=== PATIENT | female | born 1940 | race Caucasian/White ===

== ENCOUNTER 2016-06-14 08:57 | Day surgery (SDC) | payer MEDICARE ==
[2016-06-14] MEDS ORDERED: LACTATED RINGERS 1,000 ML IV ONE ×2 (09:17→11:32)
[2016-06-14] MEDS ORDERED: fentaNYL 100 MCG/2 ML VIAL IVP ONE (10:32)
[2016-06-14] MEDS ORDERED: MIDAZOLAM 2 MG/2 ML VIAL IVP ONE (10:32)
== END 2016-06-14 08:58 | disposition home or self-care (01) ==
PROC: 0DJD8ZZ Inspection of Lower Intestinal Tract, Via Natural or Artificial Opening Endoscopic (ICD-10-PCS; principal; 2016-06-14 09:45)
DX: K92.1 Melena (principal); K57.30 Diverticulosis of large intestine without perforation or abscess without bleeding; K64.8 Other hemorrhoids; Z80.0 Family history of malignant neoplasm of digestive organs; Z82.49 Family history of ischemic heart disease and other diseases of the circulatory system; Z80.41 Family history of malignant neoplasm of ovary; Z80.1 Family history of malignant neoplasm of trachea, bronchus and lung
CPT/HCPCS: 45378; J7120

== ENCOUNTER 2016-08-30 14:28 | Outpatient (CLI) | payer MEDICARE ==
--- NOTE | 2016-09-01 16:16 | Mammography Report ---
DIGITAL SCREENING MAMMOGRAM: 08/30/2016 CLINICAL INDICATION: A 76-year-old for screening. COMPARISON: 08/2009, 06/2008, 05/2007. TECHNIQUE: Routine CC and MLO projections were obtained of the breasts as well as bilateral laterall y exaggerated craniocaudal views. FINDINGS: Scattered fibroglandular tissue is present within the breasts. There are no dominant any s, suspicious microcalcifications, or secondary signs of malignancy. In comparison to the previous st udies, there are no significant changes. ASSESSMENT: NO MAMMOGRAPHIC EVIDENCE OF MALIGNANCY. NO SIGNIFICANT INTERVAL CHANGES. RECOMMENDATION: Screening mammography is recommended annually. BI-RADS category 1 - negative. STANDARD QUALIFYING STATEMENTS 1. This examination was reviewed with the aid of Computed-Aided Detection (CAD). 2. A negative or benign imaging report should not delay biopsy if clinically suspicious findings are present. Consider surgical consultation if warranted. More than 5% of cancers are not identified by i maging. 3. Dense breasts may obscure an underlying neoplasm. JOB #: [id number] EXT JOB #:[id number]
== END 2016-08-30 14:29 | disposition home or self-care (01) ==
LOC: DI.N 14:28
PROVIDERS: ATTEND Family Medicine
DX: Z12.31 Encounter for screening mammogram for malignant neoplasm of breast (principal)
CPT/HCPCS: 77067

== ENCOUNTER 2018-02-12 08:00 | Outpatient (CLI) | payer MEDICARE ==
[2018-02-12 16:44] LABS: BASOPHILS % (AUTO) 0.8 %; EOSINOPHILS # (AUTO) 0.2 10^3/uL (0.0-0.7); EOSINOPHILS % (AUTO) 4.8 %; HGB - HEMOGLOBIN 13.8 g/dL (12.0-16.0); LYMPHOCYTES # (AUTO) 0.9 10^3/uL (1.5-3.5); LYMPHOCYTES % (AUTO) 25.6 %; MEAN CORPUSCULAR HEMOGLOBIN 30.9 pg (27.0-31.0); MEAN CORPUSCULAR HGB CONC 32.6 g/dL (32.0-36.0); MEAN CORPUSCULAR VOLUME 94.9 fL (81.0-99.0); MEAN PLATELET VOLUME 9.2 fL (7.9-10.8); MONOCYTES # (AUTO) 0.4 10^3/uL (0.0-1.0); MONOCYTES % (AUTO) 11.3 %; NEUTROPHILS # (AUTO) 2.1 10^3/uL (1.5-6.6); NEUTROPHILS % (AUTO) 57.5 %; PLT - PLATELET COUNT 191 10^3/uL (130-450); RED BLOOD COUNT 4.45 10^6/uL (4.20-5.40); RED CELL DISTRIBUTION WIDTH 14.1 % (12.0-15.0); WHITE BLOOD COUNT 3.7 x10^3/uL (4.8-10.8)
[2018-02-12 16:59] LABS: ALBUMIN 4.4 g/dL (3.2-5.5); ALBUMIN/GLOBULIN RATIO 1.8 (1.0-2.2); ALKALINE PHOSPHATASE 63 IU/L (42-121); ALT ALANINE AMINOTRANSFERASE 19 IU/L (10-60); AST ASPARTATE AMINOTRANSFERASE 27 IU/L (10-42); BILIRUBIN,TOTAL 0.8 mg/dL (0.2-1.0); BUN - BLOOD UREA NITROGEN 16 mg/dL (6-20); CALCIUM 9.2 mg/dL (8.5-10.3); CARBON DIOXIDE - CO2 27 mmol/L (21-32); CHLORIDE 104 mmol/L (101-111); CHOL/HDL RATIO 2.3 (<4.4); CHOLESTEROL 214 mg/dL; CREATININE 0.8 mg/dL (0.4-1.0); GFR - MDRD 69 (>89); GLUCOSE 99 mg/dL (70-100); HDL CHOLESTEROL 92 mg/dL; LDL CHOLESTEROL,CALCULATED 107 mg/dL; LDL/HDL RATIO 1.2 (<4.4); SODIUM 138 mmol/L (135-145); TOTAL PROTEIN 6.9 g/dL (6.7-8.2); VLDL CHOLESTEROL 15 mg/dL
== END 2018-02-12 08:01 | disposition home or self-care (01) ==
LOC: LAB.WCP 08:00
PROVIDERS: ATTEND Family Medicine
DX: I10 Essential (primary) hypertension (principal)
CPT/HCPCS: 36415; 80053; 80061; 83721; 85025

== ENCOUNTER 2018-03-02 14:18 | Outpatient (CLI) | payer MEDICARE ==
--- NOTE | 2018-03-03 01:58 | Ultrasound Report ---
Reason: RETINAL ARTERY BRANCH OCCLUSION,LEFT Procedure Date: 03/02/2018 Accession Number: [id number] / [id number] Procedure: US - Carotid Doppler Complete CPT Code: FULL RESULT: EXAM: BILATERAL CAROTID AND VERTEBRAL ARTERY DUPLEX DOPPLER ULTRASOUND: EXAM DATE: 03/02/2018 03:57 PM CLINICAL HISTORY: Retinal artery branch occlusion, left. COMPARISON: None. TECHNIQUE: Grayscale imaging, color Doppler, and duplex spectral Doppler were used to evaluate the carotid and vertebral arteries bilaterally. Static images were obtained. FINDINGS: No significant atheromatous plaques are present in the right carotid bulb or the internal carotid artery. No significant atheromatous plaques are present in the left carotid bulb or the internal carotid artery. Visualized portions of the neck soft tissues are grossly unremarkable. Normal antegrade flow is present in bilateral vertebral arteries. VELOCITIES (cm/sec): Right CCA mid: PSV 56.7 cm/sec CCA dist: PSV 39.4 cm/sec ICA prox: PSV 31.7 cm/sec, EDV 4.1 cm/sec ICA mid: PSV 52.1 cm/sec, EDV 16 cm/sec ICA dist: PSV 56.7 cm/sec, EDV 13.3 cm/sec ECA: PSV 68.6 cm/sec Vert: PSV 26.6 cm/sec ICA/CCA: 1.0 Left CCA mid: PSV 52.5 cm/sec CCA dist: PSV 40.6 cm/sec ICA prox: PSV 43.2 cm/sec, EDV 13.9 cm/sec ICA mid: PSV 44 cm/sec, EDV 16.2 cm/sec ICA dist: PSV 55.3 cm/sec, EDV 19.2 cm/sec ECA: PSV 37.3 cm/sec Vert: PSV 27.4 cm/sec ICA/CCA: 1.06 ICA diameter stenosis: Right: <50% by velocity and <70% by NASCET criteria. Left: <50% by velocity and <70% by NASCET criteria. IMPRESSION: 1. No significant bilateral carotid artery plaquing. 2. In the right carotid artery there are no elevated carotid artery velocities to suggest hemodynamically significant stenosis. 3. In the left carotid artery there are no elevated carotid artery velocities to suggest hemodynamically significant stenosis. 4. Normal antegrade flow is present in bilateral vertebral arteries. General Recommendations: Stenosis =50% ICA - Follow-up ultrasound 6-12 months Stenosis <50% ICA - High Risk Patient with plaque - Follow-up ultrasound 1-2 years Normal Study but High Risk Patient - Follow-up ultrasound 3-5 years Management recommendations and diagnostic criteria are based on current IAC endorsed standards in Carotid Artery Stenosis: Grayscale and Doppler Ultrasound Diagnosis. Validated velocity measurements with angiographic measurements and velocity criteria are extrapolated from diameter data as defined by the Society of Radiologists in Ultrasound Consensus Conference Radiology 2003; 229;340-346. RADIA
== END 2018-03-02 14:19 | disposition home or self-care (01) ==
LOC: DI 14:18
PROVIDERS: ATTEND Family Medicine
DX: H34.232 Retinal artery branch occlusion, left eye (principal)
CPT/HCPCS: 93880

== ENCOUNTER 2019-02-04 07:00 | Outpatient (CLI) | payer MEDICARE ==
[2019-02-12 18:37] LABS: BASOPHILS % (AUTO) 0.7 %; EOSINOPHILS # (AUTO) 0.1 10^3/uL (0.0-0.7); EOSINOPHILS % (AUTO) 2.2 %; HGB - HEMOGLOBIN 11.9 g/dL (12.0-16.0); LYMPHOCYTES # (AUTO) 0.9 10^3/uL (1.5-3.5); LYMPHOCYTES % (AUTO) 15.9 %; MEAN CORPUSCULAR HEMOGLOBIN 30.7 pg (27.0-31.0); MEAN CORPUSCULAR HGB CONC 31.6 g/dL (32.0-36.0); MEAN CORPUSCULAR VOLUME 97.2 fL (81.0-99.0); MEAN PLATELET VOLUME 10.7 fL (7.9-10.8); MONOCYTES # (AUTO) 0.5 10^3/uL (0.0-1.0); MONOCYTES % (AUTO) 8.7 %; NEUTROPHILS % (AUTO) 72.3 %; PLT - PLATELET COUNT 206 10^3/uL (130-450); RED BLOOD COUNT 3.88 10^6/uL (4.20-5.40); WHITE BLOOD COUNT 5.5 x10^3/uL (4.8-10.8)
== END 2019-02-04 23:59 | disposition home or self-care (01) ==
LOC: LAB.R 07:00
PROVIDERS: ATTEND Physician Assistant
DX: M10.9 Gout, unspecified (principal); L03.90 Cellulitis, unspecified
CPT/HCPCS: 84550; 85025; 85651

== ENCOUNTER 2019-05-31 11:43 | Outpatient (CLI) | payer MEDICARE ==
--- NOTE | 2019-05-31 18:57 | XRAY Report ---
Reason: COUGH WITH FEVER Procedure Date: 05/31/2019 Accession Number: [id number] / [id number] Procedure: WCP - Chest 2 View X-Ray CPT Code: 03156 Final Report FULL RESULT: EXAM: CHEST RADIOGRAPHY EXAM DATE: 05/31/2019 12:09 PM. CLINICAL HISTORY: Cough, fever. COMPARISON: Chest radiograph from 03/05/2015, 07/22/2009. TECHNIQUE: 2 views. FINDINGS: Lungs/Pleura: No focal airspace opacity. There are hazy bibasilar densities on frontal view, which are similar to the prior examination and suspected to represent sequela of breast tissue attenuation as no correlate is identified on lateral view. No pleural effusion or pneumothorax. Mediastinum: Cardiomediastinal silhouette is within normal limits. Pulmonary vasculature is unremarkable. Other: There is mild apex left curvature centered at the thoracolumbar junction. Severe multilevel degenerative disk disease is present throughout the thoracic spine. There is partial visualization of flattening of the left humeral head, which may represent sequela of previous trauma or avascular necrosis. IMPRESSION: No acute cardiopulmonary abnormality. RADIA
== END 2019-05-31 23:59 | disposition home or self-care (01) ==
LOC: DI.WCP 11:43
PROVIDERS: ATTEND Family Medicine
DX: R05 Cough (principal)
CPT/HCPCS: 71046

== ENCOUNTER 2019-06-26 13:44 | Outpatient (CLI) | payer MEDICARE | END 2019-06-26 13:45 | disposition home or self-care (01) | LOC: COV 13:44 | PROVIDERS: ATTEND Family Medicine | DX: R05 Cough (principal) | CPT/HCPCS: 81599 ==

== ENCOUNTER 2019-06-26 14:43 | Emergency (ER) | payer MEDICARE ==
[2019-06-26] MEDS ORDERED: SODIUM CHLORIDE 0.9% 1,000 ML IV ONE (15:39)
[2019-06-26 15:44] LABS: BASOPHILS % (AUTO) 0.4 %; EOSINOPHILS # (AUTO) 0.1 10^3/uL (0.0-0.7); EOSINOPHILS % (AUTO) 1.2 %; LYMPHOCYTES # (AUTO) 0.9 10^3/uL (1.5-3.5); LYMPHOCYTES % (AUTO) 11.3 %; MEAN CORPUSCULAR HEMOGLOBIN 30.2 pg (27.0-31.0); MEAN CORPUSCULAR HGB CONC 32.7 g/dL (32.0-36.0); MEAN CORPUSCULAR VOLUME 92.3 fL (81.0-99.0); MEAN PLATELET VOLUME 10.1 fL (7.9-10.8); MONOCYTES # (AUTO) 0.5 10^3/uL (0.0-1.0); MONOCYTES % (AUTO) 6.8 %; PLT - PLATELET COUNT 225 10^3/uL (130-450); RED BLOOD COUNT 4.31 10^6/uL (4.20-5.40); RED CELL DISTRIBUTION WIDTH 13.5 % (12.0-15.0); WHITE BLOOD COUNT 7.5 x10^3/uL (4.8-10.8)
--- NOTE | 2019-06-26 15:50 | ED Physician Documentation ---
History of Present Illness - Stated complaint Stated Complaint: WEAKNESS - Chief complaint Chief Complaint: Resp - Additonal information Additional information: Patient comes emergency department for chief complaint of worsening cough and fa tigue for the last several days. Patient states that approximately 1 month ago she was diagnosed with pneumonia. She was treated for this and seemed to be getting better until several days ago when she noticed that her cough was worsening and she seemed to be more tired than she had been. She states she has not been running fevers. Patient denies any chest pain. She complains of mild dyspnea. Her cough is nonproductive. The patient talk to her primary care physician's office, and they told her to come and get tested for covid. Patient went to the respiratory tent and got her covid testing, but then came here because she really feels that she needs a chest x-ray to be sure her pneumonia has not recurred. Patient's primary care physician is Dr. Chery. Patient states that she is otherwise fairly healthy. She does note that she had polio as a child and that she was exposed to secondhand smoke for some time, though she was never smoker herself. She states she has been told previously that her x-ray shows the appearance of COPD, even though the patient states she does not have any history of COPD. Patient states that she does not feel short of breath laying in the bed, but that she has just been generally fatigued and has not gotten out of bed much for the last couple of days. No other complaints at this time. She has not had any known exposures to anybody with covid-19 or influenza. Review of Systems Ten Systems: 10 systems reviewed and negative Constitutional: reports: Fatigue Eyes: reports: Reviewed and negative Ears: reports: Reviewed and negative Nose: reports: Reviewed and negative Throat: reports: Reviewed and negative Cardiac: reports: Reviewed and negative Respiratory: reports: Dyspnea, Cough GI: reports: Reviewed and negative : reports: Reviewed and negative Skin: reports: Reviewed and negative Musculoskeletal: reports: Reviewed and negative Neurologic: reports: Reviewed and negative Psychiatric: reports: Reviewed and negative Endocrine: reports: Reviewed and negative Immunocompromised: reports: Reviewed and negative PD PAST MEDICAL HISTORY - Past Medical History Cardiovascular: None Respiratory: Pneumonia Neuro: Peripheral neuropathy Endocrine/Autoimmune: None GI: None : Frequency HEENT: None Psych: None Musculoskeletal: Osteoarthritis, Chronic back pain Derm: None - Past Surgical History Past Surgical History: Yes General: Colonoscopy Ortho: Carpal Tunnel surgery, Spine surgery HEENT: Tonsil/Adenoidectomy Derm: Skin cancer surgery - Present Medications Home Medications: Ambulatory Orders Medication Instructions Recorded Confirmed Acetaminophen [Tylenol] 2 tab QPM 06/26/19 06/26/19 Codeine Phosphate/Guaifenesin 10 ml Q8HR 06/26/19 06/26/19 [Guaifen-Codeine 200-20 mg/10Ml] Fluticasone [Flonase] 2 spray DAILY 06/26/19 06/26/19 Gabapentin 2 tab DAILY 06/26/19 06/26/19 Naproxen Sodium [Aleve] 2 tab BID 06/26/19 06/26/19 methocarbamoL [Methocarbamol] 1 tab DAILY 06/26/19 06/26/19 - Allergies Allergies/Adverse Reactions: Allergies Allergy/AdvReac Type Severity Reaction Status Date / Time No Known Drug Allergies Allergy Verified 10/08/15 13:26 - Social History Does the pt smoke?: No Smoking Status: Never smoker Does the pt drink ETOH?: No Does the pt have substance abuse?: No PD ED PE NORMAL - Vitals Vital signs reviewed: Yes - General General: Alert and oriented X 3, No acute distress, Well developed/nourished - HEENT HEENT: Atraumatic, PERRL, EOMI, Moist mucous membranes - Neck Neck: Supple, no meningeal sign - Cardiac Cardiac: RRR, No murmur - Respiratory Respiratory: No respiratory distress, Clear bilaterally, Other (Patient is conversing easily in full sentences with no laboring of respirations.) - Abdomen Abdomen: Soft, Non tender, Non distended - Back Back: No CVA TTP - Derm Derm: Normal color, Warm and dry, No rash - Extremities Extremities: No deformity, No edema - Neuro Neuro: Alert and oriented X 3, face worker 2-12 intact, No motor deficit, No sensory deficit, Normal speech - Psych Psych: Normal mood, Normal affect Results - Vitals Vitals: Vital Signs - 24 hr 06/26/19 06/26/19 06/26/19 14:47 14:51 15:21 Temperature 36.4 C L Heart Rate 81 72 68 Respiratory 16 28 H 20 Rate Blood Pressure 136/82 H 172/78 H 150/81 H O2 Saturation 97 97 100 06/26/19 06/26/19 15:31 16:11 Temperature Heart Rate 76 76 Respiratory 18 20 Rate Blood Pressure 148/81 H 164/84 H O2 Saturation 94 97 Oxygen O2 Source Room air - Labs Labs: Laboratory Tests 06/26/19 06/26/19 06/26/19 15:30 15:30 15:55 WBC 7.5 RBC 4.31 Hgb 13.0 Hct 39.8 MCV 92.3 MCH 30.2 MCHC 32.7 RDW 13.5 Plt Count 225 MPV 10.1 Neut # (Auto) 6.0 Lymph # (Auto) 0.9 L [place] # (Auto) 0.5 Eos # (Auto) 0.1 Baso # (Auto) 0.0 Absolute Nucleated RBC 0.00 Nucleated RBC % 0.0 Sodium 134 L Potassium 4.1 Chloride 98 L Carbon Dioxide 28 Anion Gap 8.0 BUN 14 Creatinine 0.7 Estimated GFR (MDRD) 81 L Glucose 109 H Calcium 8.7 Total Bilirubin 0.7 AST 25 ALT 19 Alkaline Phosphatase 59 Total Protein 6.9 Albumin 4.3 Globulin 2.6 Albumin/Globulin Ratio 1.7 Lipase 23 Influenza A (Rapid) Negative Influenza B (Rapid) Negative - Rads (name of study) chest x-ray Radiology: Final report received, EMP read indepedently, See rad report PD MEDICAL DECISION MAKING - ED course Complexity details: reviewed results, re-evaluated patient, considered differential, d/w patient ED course: The patient was worked up with chest x-ray, labs, and influenza test. Patient's labs were unremarkable and influenza was negative. Chest x-ray showed a mild amount of atelectasis at the bilateral lung bases, without any clear-cut infiltrate. Patient had a normal white blood cell count and no fever, with good oxygen saturation, and was feeling much better after IV fluids. I did not find convincing evidence of a recurrence of her pneumonia at this time. The patient has already been tested for covid today and I have advised her to stay home until she receives results from this testing. The patient is advised if she develops fevers and worsening shortness of breath but that she should be reevaluated immediately. We have discussed home management of the symptoms, as well as usual indications for return. Departure - Departure Disposition: 01 Home, Self Care Clinical Impression: Cough Condition: Fair Instructions: ED Viral Syndrome Comments: Your labs look great. Your chest x-ray shows mild collapse of the air cells at the very bottom of both of your lungs. This could be from coughing. There is no definite evidence of a recurrence of your pneumonia. You may have picked up one of the many viruses that go around this time of year, or you may simply still be recovering from the pneumonia you had last month. Please continue to drink plenty of fluids. Get rest as needed but be sure to get up and about and take deep breaths to help aerate your lungs and prevent recurrence of your pneumonia. If you develop fevers or severe shortness of breath, you should be referred evaluated immediately. You will be notified if your covid test comes back positive.
[2019-06-26 15:57] LABS: ALBUMIN 4.3 g/dL (3.2-5.5); ALBUMIN/GLOBULIN RATIO 1.7 (1.0-2.2); BILIRUBIN,TOTAL 0.7 mg/dL (0.2-1.0); CALCIUM 8.7 mg/dL (8.5-10.3); CREATININE 0.7 mg/dL (0.4-1.0); TOTAL PROTEIN 6.9 g/dL (6.7-8.2)
--- NOTE | 2019-06-26 16:39 | XRAY Report ---
Reason: SOA Procedure Date: 06/26/2019 Accession Number: [id number] / [id number] Procedure: XR - Chest 1 View X-Ray CPT Code: 10433 Final Report FULL RESULT: EXAM: CHEST RADIOGRAPHY EXAM DATE: 06/26/2019 04:27 PM. CLINICAL HISTORY: SOA. COMPARISON: CHEST 2 VIEW 05/31/2019 11:47 AM. TECHNIQUE: 1 view. FINDINGS: Lungs/Pleura: Very mild increased bibasilar lung markings could represent atelectasis. Mild acute infiltrate is not excluded. No definite focal consolidation. No pleural effusion. No pneumothorax. Mediastinum: Within exam limitations, the cardiomediastinal contour is normal. Other: Thoracolumbar S-shaped scoliosis redemonstrated. Bilateral glenohumeral osteoarthritis redemonstrated. IMPRESSION: Very mild increased bibasilar markings could represent atelectasis. Mild acute infiltrate is not excluded. No definite focal consolidation. RADIA
[2019-06-26 17:40] VITALS: BP 138/84
== END 2019-06-26 17:38 | disposition home or self-care (01) ==
LOC: ED 14:43
DX: R05 Cough (principal)
CPT/HCPCS: 36415; 71045; 80053; 83690; 85025; 87275; 87276; 99283; 99284

== ENCOUNTER 2020-04-03 07:00 | Outpatient (CLI) | payer MEDICARE | END 2020-04-03 23:59 | disposition home or self-care (01) | LOC: COV 07:00 | PROVIDERS: ATTEND Ophthalmology | DX: U07.1 COVID-19 (principal) ==

== ENCOUNTER 2020-12-09 13:12 | Outpatient (CLI) | payer MEDICARE ==
[2020-12-09 17:57] LABS: BASOPHILS % (AUTO) 0.6 %; EOSINOPHILS # (AUTO) 0.2 10^3/uL (0.0-0.7); HCT - HEMATOCRIT 37.4 % (37.0-47.0); HGB - HEMOGLOBIN 11.6 g/dL (12.0-16.0); LYMPHOCYTES # (AUTO) 0.8 10^3/uL (1.5-3.5); LYMPHOCYTES % (AUTO) 14.8 %; MEAN CORPUSCULAR HEMOGLOBIN 29.7 pg (27.0-31.0); MEAN CORPUSCULAR VOLUME 95.9 fL (81.0-99.0); MONOCYTES # (AUTO) 0.5 10^3/uL (0.0-1.0); MONOCYTES % (AUTO) 8.8 %; NEUTROPHILS # (AUTO) 3.9 10^3/uL (1.5-6.6); NEUTROPHILS % (AUTO) 72.6 %; PLT - PLATELET COUNT 225 10^3/uL (130-450); RED CELL DISTRIBUTION WIDTH 13.6 % (12.0-15.0); WHITE BLOOD COUNT 5.3 x10^3/uL (4.8-10.8)
[2020-12-09 18:17] LABS: ALBUMIN 4.3 g/dL (3.2-5.5); ALBUMIN/GLOBULIN RATIO 1.9 (1.0-2.2); BILIRUBIN,TOTAL 0.6 mg/dL (0.2-1.0); CALCIUM 9.3 mg/dL (8.5-10.3); CREATININE 0.8 mg/dL (0.4-1.0); TOTAL PROTEIN 6.6 g/dL (6.7-8.2)
== END 2020-12-09 23:59 | disposition home or self-care (01) ==
LOC: LAB.WCP 13:12
PROVIDERS: ATTEND Family Medicine
DX: R60.9 Edema, unspecified (principal)
CPT/HCPCS: 36415; 80053; 85025

== ENCOUNTER 2021-10-01 19:55 | Outpatient (CLI) | payer MEDICARE ==
--- NOTE | 2021-10-02 10:11 | XRAY Report ---
PROCEDURE: Chest 2 View X-Ray INDICATIONS: COUGH TECHNIQUE: 2 view(s) of the chest. COMPARISON: Chest x-ray 2 views, 03/05/2015. FINDINGS: Surgical changes and devices: None. Lungs and pleura: There are bilateral interstitial infiltrates. No pleural effusions or pneumothorax. Lungs are clear. Mediastinum: Mediastinal contours are normal. Heart size is normal. Bones and chest wall: No suspicious bony abnormalities. Soft tissues appear unremarkable. Left arnie ulder prosthesis. IMPRESSION: Bilateral interstitial infiltrates. There is radiographic finding suggests interstitial pneumonia such as UIP. Recommend high-resolution chest CT for follow-up evaluation if clinically miguel angel cated. Reviewed by: Rita Pearl MD on 10/02/2021 10:09 AM PDT Approved by: Rita Pearl MD on 10/02/2021 10:09 AM PDT Station ID: [id number]
== END 2021-10-01 19:56 | disposition home or self-care (01) ==
LOC: DI 19:55
PROVIDERS: ATTEND Family Medicine
DX: R91.8 Other nonspecific abnormal finding of lung field (principal)

== ENCOUNTER 2022-10-19 08:00 | Outpatient (CLI) | payer MEDICARE ==
[2022-10-19 17:54] LABS: ALBUMIN 4.4 g/dL (3.2-5.5); ALBUMIN/GLOBULIN RATIO 1.8 (1.0-2.2); BILIRUBIN,TOTAL 0.4 mg/dL (0.2-1.0); CALCIUM 9.8 mg/dL (8.5-10.3); CREATININE 0.7 mg/dL (0.6-1.3); POTASSIUM 4.7 mmol/L (3.5-4.5); TOTAL PROTEIN 6.9 g/dL (6.4-8.9)
[2022-10-19 17:57] LABS: BASOPHILS % (AUTO) 0.5 %; EOSINOPHILS # (AUTO) 0.1 10^3/uL (0.0-0.7); HCT - HEMATOCRIT 39.6 % (37.0-47.0); HGB - HEMOGLOBIN 12.5 g/dL (12.0-16.0); LYMPHOCYTES # (AUTO) 0.8 10^3/uL (1.5-3.5); LYMPHOCYTES % (AUTO) 13.8 %; MEAN CORPUSCULAR HEMOGLOBIN 29.6 pg (27.0-31.0); MEAN CORPUSCULAR HGB CONC 31.6 g/dL (32.0-36.0); MEAN CORPUSCULAR VOLUME 93.8 fL (81.0-99.0); MEAN PLATELET VOLUME 11.1 fL (7.9-10.8); MONOCYTES # (AUTO) 0.5 10^3/uL (0.0-1.0); MONOCYTES % (AUTO) 9.5 %; NEUTROPHILS # (AUTO) 4.1 10^3/uL (1.5-6.6); NEUTROPHILS % (AUTO) 73.8 %; PLT - PLATELET COUNT 207 10^3/uL (130-450); RED BLOOD COUNT 4.22 10^6/uL (4.20-5.40); RED CELL DISTRIBUTION WIDTH 13.9 % (12.0-15.0); WHITE BLOOD COUNT 5.6 x10^3/uL (4.8-10.8)
== END 2022-10-19 23:59 | disposition home or self-care (01) ==
LOC: LAB.N 08:00
PROVIDERS: ATTEND Family Medicine
DX: R19.01 Right upper quadrant abdominal swelling, mass and lump (principal)
CPT/HCPCS: 36415; 80053; 85025

== ENCOUNTER 2022-10-27 06:59 | Outpatient (CLI) | payer MEDICARE ==
--- NOTE | 2022-10-27 10:52 | Ultrasound Report ---
PROCEDURE: Abdomen Complete INDICATIONS: ABD SWELLING TECHNIQUE: Real-time scanning was performed of the abdominal and retroperitoneal organs, with image documentatio n. COMPARISON: CT abdomen and pelvis with, 10/08/2015. FINDINGS: Liver: Liver is normal in size and heterogeneous in echotexture. Gallbladder: There are multiple gallstones. No gallbladder wall thickening, pericholecystic fluid col lection or sonographic Green sign. Biliary ducts: Intrahepatic bile ducts are non-dilated. Extrahepatic bile duct caliber measures 5 m m. Normal is 6-7 mm or less in diameter, or 10 mm or less post-cholecystectomy. Pancreas: Visualized portions of the pancreas are sonographically normal. Spleen: Spleen is normal in size and homogeneous in echotexture. Kidneys: Kidneys are normal in size and echotexture. Right kidney measures 10.9 cm long; left kidne y measures 9.8 cm long. No hydronephrosis or nephrolithiasis. No solid masses. No complex renal cys tic lesions which require follow-up. Aorta: Visualized aorta is normal in caliber at less than 3 cm. Atherosclerotic plaques in aorta. Iliacs: Proximal common iliac arteries are normal in caliber at less than 2.5 cm. IVC: Intrahepatic inferior vena cava is patent. Miscellaneous: No free abdominal fluid. IMPRESSION: 1. Liver demonstrates heterogeneous echotexture. Please correlate with liver enzymes. 2. Cholelithiasis. No ultrasound findings to suggest acute cholecystitis. Reviewed by: Rita Pearl MD on 10/27/2022 10:50 AM PDT Approved by: Rita Pearl MD on 10/27/2022 10:50 AM PDT Station ID: [id number]
== END 2022-10-27 07:00 | disposition home or self-care (01) ==
LOC: DI 06:59
PROVIDERS: ATTEND Family Medicine
DX: K80.20 Calculus of gallbladder without cholecystitis without obstruction (principal); R19.01 Right upper quadrant abdominal swelling, mass and lump

== ENCOUNTER 2022-12-12 11:37 | Outpatient (CLI) | payer MEDICARE ==
[2022-12-12 17:56] LABS: CREATININE 0.7 mg/dL (0.6-1.3)
== END 2022-12-12 11:38 | disposition home or self-care (01) ==
LOC: LAB.N 11:37
PROVIDERS: ATTEND Surgery
DX: R19.01 Right upper quadrant abdominal swelling, mass and lump (principal)
CPT/HCPCS: 36415; 82565

== ENCOUNTER 2023-01-06 07:43 | Outpatient (CLI) | payer MEDICARE ==
[2023-01-06 12:34] LABS: CHOL/HDL RATIO 2.1 (<4.4); CHOLESTEROL 183 mg/dL; HDL CHOLESTEROL 87 mg/dL; LDL CHOLESTEROL,CALCULATED 85 mg/dL; TRIGLYCERIDES 54 mg/dL (48-352); VLDL CHOLESTEROL 11 mg/dL
== END 2023-01-06 07:44 | disposition home or self-care (01) ==
LOC: LAB.N 07:43
PROVIDERS: ATTEND Internal Medicine
DX: Z13.220 Encounter for screening for lipoid disorders (principal); Z13.29 Encounter for screening for other suspected endocrine disorder
CPT/HCPCS: 36415; 80061; 83721; 84443

== ENCOUNTER 2023-03-02 15:19 | Outpatient (CLI) | payer MEDICARE ==
--- NOTE | 2023-03-02 17:12 | DEXA Report ---
PROCEDURE: Dexa Spine and/or Hip INDICATIONS: POST MENOPAUSAL TECHNIQUE: Dual energy x-ray absorptiometry (DXA) was performed on a [facility]. Regions measur ed are the AP Spine, femoral neck, and if needed forearm. COMPARISON: None FINDINGS: Lumbar Spine: Bone Mineral Density 1.407 g/cm/cm,T score 1.7. Left Femoral Neck: Bone Mineral Density 0.952 g/cm/cm, T score -0.6. Left Hip: Bone Mineral Density 0.990 g/cm/cm,T score -0.1. (T score greater or equal to -1.0: NORMAL) (T score from -1.1 to -2.4: OSTEOPENIA) (T score less than or equal to -2.5 to: OSTEOPOROSIS) Impression: By WHO criteria, this patient has normal bone density. Patients with diagnosis of osteoporosis or osteopenia should have regular bone mineral density assess ment. For those eligible for Medicare, routine testing is allowed once every 2 years. Testing frequ ency can be increased for patients who have rapidly progressing disease or for those who are receivin g medical therapy to restore bone mass. Reviewed by: Berto Milian MD on 03/02/2023 5:10 PM PST Approved by: Berto Milian MD on 03/02/2023 5:10 PM PST Station ID: [id number]
== END 2023-03-02 15:20 | disposition home or self-care (01) ==
LOC: DI 15:19
PROVIDERS: ATTEND Internal Medicine
DX: Z78.0 Asymptomatic menopausal state (principal)

== ENCOUNTER 2023-03-24 16:46 | Emergency (ER) | payer MEDICARE ==
[2023-03-24 17:04] VITALS: O2SAT 100
[2023-03-24] MEDS ORDERED: HYDROcod/ACETAM 5/325 MG TABLET PO STA (18:35)
--- NOTE | 2023-03-24 18:36 | ED Physician Documentation ---
PD HPI UPPER EXT INJURY - Stated complaint Stated Complaint: L ANKLE PX - Chief complaint Chief Complaint: Ext Problem - History obtained from History obtained from: Patient - Additonal information Additional information: She developed sudden onset left ankle pain while sitting on the couch 9 PM last night. There was no antecedent injury or abnormal activities. She never had this before. It hurts to walk such that she can barely walk. No fevers. PD PAST MEDICAL HISTORY - Past Medical History Cardiovascular: None Respiratory: Pneumonia Neuro: Peripheral neuropathy Endocrine/Autoimmune: None GI: None : Frequency HEENT: None Psych: None Musculoskeletal: Osteoarthritis, Chronic back pain Derm: None - Past Surgical History Past Surgical History: Yes General: Colonoscopy Ortho: Carpal Tunnel surgery, Spine surgery HEENT: Tonsil/Adenoidectomy Derm: Skin cancer surgery - Present Medications Home Medications: Ambulatory Orders Medication Instructions Recorded Confirmed Acetaminophen [Tylenol] 2 tab PO QPM PRN 06/26/19 12/21/22 Gabapentin 2 tab DAILY 06/26/19 06/26/19 methocarbamoL [Methocarbamol] 2 tab PO DAILY PRN 06/26/19 12/21/22 HYDROcod/ACETAM 5/325 [[employer] 5/325] 1 - 2 tab PO Q6H PRN #15 tablet 03/24/23 Meloxicam [Mobic] 7.5 mg PO BID PRN #20 tablet 03/24/23 - Allergies Allergies/Adverse Reactions: Allergies Allergy/AdvReac Type Severity Reaction Status Date / Time No Known Drug Allergies Allergy Verified 10/08/15 13:26 - Social History Does the pt smoke?: No Smoking Status: Never smoker Does the pt drink ETOH?: No Does the pt have substance abuse?: No PD ED PE NORMAL - Vitals Vital signs reviewed: Yes - General General: Alert and oriented X 3, No acute distress - Extremities Extremities: Other (The calf is nontender and nonswollen. She is tender about the left ankle joint. There is no warmth or redness. She has modest pain with range of motion but not severe as would be with a septic joint.) - Neuro Neuro: Alert and oriented X 3, Normal speech Results - Vitals Vitals: Vital Signs - 24 hr 03/24/23 16:53 Temperature 36.5 C Heart Rate 71 Respiratory 18 Rate Blood Pressure 170/95 H O2 Saturation 100 Oxygen O2 Source Room air - Labs Labs: Laboratory Tests 03/24/23 18:47 Sodium 136 Potassium 5.2 H Chloride 103 Carbon Dioxide 27 Anion Gap 6.0 BUN 18 Creatinine 0.9 Estimated GFR (MDRD) 60 L Glucose 94 Uric Acid 4.2 Calcium 9.4 PD Medical Decision Making - ED course ED course: 82-year-old woman presents with acute onset left ankle pain starting last night. DVT is considered but there is really no pain or swelling above the ankle so this is very unlikely. Gout is considered but her uric acid is low normal and there is no history of same so less likely as well. X-ray showing calcification lateral to the lateral malleolus. This is where the bulk of her pain is and it really hurts for her to invert her ankle so I wonder if she might have a tendinitis? Will place her in a walking boot with pain medication anti- inflammatories pending follow-up. Departure - Departure Disposition: Home, Self Care Clinical Impression: Left ankle tendinitis Condition: Good Record reviewed to determine appropriate education?: Yes Instructions: ED Tendinitis Calcific Prescriptions: Meloxicam [Mobic] 7.5 mg PO BID PRN #20 tablet PRN Reason: Pain HYDROcod/ACETAM 5/325 [[employer] 5/325] 1 - 2 tab PO Q6H PRN #15 tablet PRN Reason: Pain Comments: I sent your prescription electronically to the [facility] in [place]. As discussed your uric acid level was normal and the x-ray showed some calcification on the tendon on the outside of your ankle so I suspect you have a tendinitis there. You can walk and bear weight as tolerated and also reasonable for you to use the walking boot until improved. Generally rested though and follow-up with your primary care physician, next available appointment for further evaluation and treatment. Return for new or worsening symptoms. I am prescribing a short course of narcotic pain medication for you. These are potentially dangerous and addictive medications that should be used carefully. These medications may constipate you. Take an ipwg-efe-cukskor stool softener (docusate) twice daily with plenty of water while taking these medications. If you go 24 hours without a bowel movement, take hpqe-vwa-goplptl miralax, per package instructions. Do not drink or drive while taking these medications. If you received narcotic or sedating medications while in the emergency department, do not drive for 24 hours. Store this medication in a safe, secure place and out of reach of children. It is a violation of federal law to give or sell this medication to another person or to use in a manner other than prescribed. The ED will not refill narcotic prescriptions, including prescriptions lost or stolen. To dispose of unwanted medications: 1. [facility] provides a drop box for medication in pill form only (no liquids) 8:00 am to 4:30 p.m. Monday-Monday in the lobby of the [facility] [place], [address] [place] [address]. Empty pills into ziplock bag before disposal. Call [phone] for information. 2.[facility] is a free service available to all [place] residents. Go to [email or web address] Note that many narcotic pain relievers also contain Tylenol/acetaminophen. Please ensure that your total dose of acetaminophen from all sources does not exceed 3 g (3000 mg) per day. Forms: PCP List
[2023-03-24 19:07] LABS: CALCIUM 9.4 mg/dL (8.5-10.3); CREATININE 0.9 mg/dL (0.6-1.3); POTASSIUM 5.2 mmol/L (3.5-4.5); URIC ACID 4.2 mg/dL (2.3-6.6)
--- NOTE | 2023-03-24 20:03 | XRAY Report ---
PROCEDURE: Ankle 3+V LT INDICATIONS: ankle pain TECHNIQUE: 3 views of the ankle were acquired. COMPARISON: None. FINDINGS: Bones: No acute fractures or dislocations. Ankle mortise is normally aligned. No suspicious bony l esions. Soft tissues: Mild nonspecific soft tissue edema in the lower leg. Nonspecific calcification is seen lateral to the lateral malleolus that may represent heterotopic ossification or the sequela of a prio r injury. IMPRESSION: No acute osseous abnormality. If there is clinical concern or persistent symptoms, additional imaging such as repeat radiographs or advanced imaging (e.g. CT, MRI) may be helpful for further evaluation. Reviewed by: Austin Rees MD on 03/24/2023 8:02 PM PST Approved by: Austin Rees MD on 03/24/2023 8:02 PM PST Station ID: [id number]
[2023-03-24 21:00] VITALS: BP 150/88
== END 2023-03-24 21:00 | disposition home or self-care (01) ==
LOC: ED 16:46
DX: M77.52 Other enthesopathy of left foot and ankle (principal)
CPT/HCPCS: 36415; 73610; 80048; 84550; 99283; 99284; A9270

== ENCOUNTER 2023-10-18 07:30 | Outpatient (CLI) | payer MEDICARE ==
[2023-10-18 11:58] LABS: BASOPHILS % (AUTO) 0.7 %; EOSINOPHILS # (AUTO) 0.3 10^3/uL (0.0-0.7); EOSINOPHILS % (AUTO) 6.5 %; HCT - HEMATOCRIT 38.1 % (37.0-47.0); HGB - HEMOGLOBIN 11.9 g/dL (12.0-16.0); LYMPHOCYTES # (AUTO) 0.9 10^3/uL (1.5-3.5); LYMPHOCYTES % (AUTO) 20.2 %; MEAN CORPUSCULAR HEMOGLOBIN 29.5 pg (27.0-31.0); MEAN CORPUSCULAR HGB CONC 31.2 g/dL (32.0-36.0); MEAN CORPUSCULAR VOLUME 94.3 fL (81.0-99.0); MONOCYTES # (AUTO) 0.5 10^3/uL (0.0-1.0); MONOCYTES % (AUTO) 12.5 %; NEUTROPHILS # (AUTO) 2.6 10^3/uL (1.5-6.6); NEUTROPHILS % (AUTO) 59.9 %; PLT - PLATELET COUNT 224 10^3/uL (130-450); RED BLOOD COUNT 4.04 10^6/uL (4.20-5.40); RED CELL DISTRIBUTION WIDTH 14.5 % (12.0-15.0); WHITE BLOOD COUNT 4.3 x10^3/uL (4.8-10.8)
[2023-10-18 12:20] LABS: ALBUMIN 4.5 g/dL (3.2-5.5); ALBUMIN/GLOBULIN RATIO 2.1 (1.0-2.2); ALKALINE PHOSPHATASE 42 IU/L (42-121); ALT ALANINE AMINOTRANSFERASE 14 IU/L (10-60); AST ASPARTATE AMINOTRANSFERASE 23 IU/L (10-42); BILIRUBIN,TOTAL 0.5 mg/dL (0.2-1.0); BUN - BLOOD UREA NITROGEN 17 mg/dL (6-20); CALCIUM 9.9 mg/dL (8.5-10.3); CARBON DIOXIDE - CO2 30 mmol/L (21-32); CHLORIDE 104 mmol/L (101-111); CHOL/HDL RATIO 2.3 (<4.4); CHOLESTEROL 200 mg/dL; CREATININE 0.7 mg/dL (0.6-1.3); GFR - MDRD 80 (>89); GLUCOSE 95 mg/dL (74-104); HDL CHOLESTEROL 86 mg/dL; LDL CHOLESTEROL,CALCULATED 100 mg/dL; LDL/HDL RATIO 1.2 (<4.4); POTASSIUM 4.3 mmol/L (3.5-4.5); SODIUM 138 mmol/L (135-145); TOTAL PROTEIN 6.6 g/dL (6.4-8.9); TRIGLYCERIDES 68 mg/dL; VLDL CHOLESTEROL 14 mg/dL
== END 2023-10-18 07:31 | disposition home or self-care (01) ==
LOC: LAB.N 07:30
PROVIDERS: ATTEND Internal Medicine
DX: I10 Essential (primary) hypertension (principal); Z13.220 Encounter for screening for lipoid disorders
CPT/HCPCS: 36415; 80053; 80061; 83721; 85025

== ENCOUNTER 2023-12-06 15:11 | Outpatient (CLI) | payer MEDICARE ==
--- NOTE | 2023-12-07 11:23 | XRAY Report ---
PROCEDURE: Shoulder 2+V RT INDICATIONS: OSTEOARTHRITIS OF RIGHT GLENOHUMERAL JOINT TECHNIQUE: 3 views of the shoulder were acquired. COMPARISON: Chest x-ray 10/01/2021 FINDINGS: Bones: Interval progression of severe glenohumeral joint space loss with [id number]. There is been superior humeral head subluxation with loss of the acromiohumeral interval. Humeral head articular s urface is irregular course the superior margin and there are prominent marginal spurs present. There is subcortical sclerosis on both sides of the glenohumeral joint. Articular surface irregularity at t he acromioclavicular joint which appears intact. The visible rib arcs are intact. Soft tissues: No suspicious soft tissue calcifications. The visualized lungs are within normal limi ts. IMPRESSION: Significant progression of osteoarthritic change in the humeral head since the prior exam. Superior subluxation of the humeral head and osseous remodeling suggests chronic rotator cuff tear. Reviewed by: Viki Carter MD on 12/07/2023 11:21 AM PDT Approved by: Viki Carter MD on 12/07/2023 11:21 AM PDT Station ID: [id number]
== END 2023-12-06 15:12 | disposition home or self-care (01) ==
LOC: DI.N 15:11
PROVIDERS: ATTEND Internal Medicine
DX: M19.011 Primary osteoarthritis, right shoulder (principal)

== ENCOUNTER 2024-06-21 06:12 | Inpatient (IN) ==
--- NOTE | 2024-06-21 06:22 | ED Physician Documentation ---
History of Present Illness Stated complaint Stated Complaint: WEAKNESS/NAUSEA Chief complaint Chief Complaint: General History obtained from History obtained from: Patient and EMS Additonal information Additional information: 84yF with pmh htn, chronic back pain, chronic constipation, p/w abdominal discomfort starting at 8pm and persisting overnight with associated nausea. no vomiting or diarrhea. aptient has been constipated and took laxatives yesterday to no effect.she received 4mg IV zofran en route with ems. denies fever. +chronic back pain (on robaxin and gabapentin) Meds/Allgy Home Medications Ambulatory Orders Medication Instructions Recorded Confirmed calcium lactate 100 mg PO QDAY 03/02/24 03/04/24 milk thistle 175 mg tablet 175 mg PO QDAY 03/02/24 03/04/24 multivitamin 1 tab PO QAM 03/02/24 03/04/24 valacyclovir 500 mg tablet 500 mg PO QDAY 03/02/24 03/04/24 hydrochlorothiazide 12.5 mg tablet 12.5 mg PO QAM #30 tabs 03/04/24 03/04/24 acetaminophen 325 mg tablet 650 mg PO QID PRN pain 03/09/24 03/09/24 calcium 300 mg (carb, 1 tab PO QDAY 03/09/24 03/09/24 citrate)-magnesium 150 mg-vit D3 400 unit tablet (Miguel-Mag Complex) coenzyme Q10 150 mg capsule 150 mg PO QDAY #30 caps 03/09/24 03/09/24 gabapentin 300 mg capsule 600 mg PO HS 03/09/24 03/09/24 melatonin 5 mg capsule 5 mg PO HS 03/09/24 03/09/24 plant stanol nieves 450 mg capsule 450 mg PO QDAY 03/09/24 03/09/24 (Cholest Off Plus) turmeric 450 mg-turmeric root 1 cap PO QDAY 03/09/24 03/09/24 extract 50 mg capsule wheat dextrin 3 gram/4 gram oral See Rx Instructions PO QDAY #90 03/09/24 03/09/24 powder (Benefiber Sugar Free grams (dextrin)) Allergies Allergies Allergy/AdvReac Type Severity Reaction Status Date / Time No Known Drug Allergies Allergy Verified 03/02/24 21:04 PFSH Active Problems All Active Problems (Updated 06/21/24 @ 06:54 by Jyotsna Rubio MD) Weakness (Acute) Anemia (Acute) Essential hypertension (Acute 07/31/09) Spinal stenosis, lumbar (Acute) Lumbar post-laminectomy syndrome (Acute 12/23/22) Arthritis of both hips (Acute 12/04/18) Pelvic floor instability (Acute 08/07/18) Menopausal syndrome (Acute) Female cystocele (Acute) Aphthous ulcer of mouth (Acute 09/13/07) Venous insufficiency of lower extremity (Acute 12/09/20) Constipation by delayed colonic transit (Acute) Diverticulosis of colon (Acute 12/23/22) Asymptomatic cholelithiasis (Acute 12/23/22) Insomnia (Acute) Allergic rhinitis (Acute) Venous insufficiency (Acute) Other forms of scoliosis, thoracolumbar region (Acute) Pulmonary fibrosis (Acute) Medical History Medical History Sprain of other ligament of left ankle, subsequent encounter Retinal artery branch occlusion, left eye (02/07/18) Personal history of poliomyelitis Surgical History Surgical History Status post reverse arthroplasty of right shoulder Fall 2023 Status post reverse arthroplasty of left shoulder 09/2019 H/O colonoscopy 05/2016, sigmoid + descending diverticulosis w/ internal hemorrhoids S/P lumbar laminectomy 08/2015, bilateral L1-L5 S/p bilateral carpal tunnel release ~2000 History of episiotomy 2x with vaginal births, S/P tonsillectomy and adenoidectomy Age 20 Family History Family History Father Colon cancer Mother CAD (coronary artery disease) Heart attack Sister Lung cancer Sister Ovarian cancer Social History Social History Smoking Status: Never smoker Second hand tobacco smoke exposure: Yes Do you dip or chew tobacco?: No Do you vape?: No Living arrangement: At home Marital Status: Living Condition: With spouse/s.o. More Information: 4 children Relationship: Level: Independent Do you feel safe in your home environment?: Yes Suffered physical, verbal, emotional, or financial abuse?: No History of Abuse: No ETOH Use: None Substance Use: denies use Are you sexually active?: No Occupation: [employer] at [employer] Retired: Yes Service: No Exam Constitutional normal general appearance, no apparent distress and average body habitus HENMT normocephalic and head/scalp atraumatic Eyes PERRL and EOMs intact bilaterally Neck/C-Spine visual inspection normal Respiratory breath sounds equal bilaterally, normal respiratory effort and clear to auscultation bilaterally Cardiovascular normal heart rate noted and regular rhythm noted Gastrointestinal abdomen normal to inspection, abdomen soft to palpation and nontender to palpation Genitourinary no CVA tenderness Results Vitals Vitals: Vital Signs - 24 hr 06/21/24 06:18 Temperature 36.8 C Temperature Source Oral Pulse Rate 94 Respiratory Rate 16 Blood Pressure 120/70 O2 Saturation 95 O2 Source Room air Pain Intensity 5 Oxygen O2 Source Room air Labs Labs: Laboratory Tests 06/21/24 06:33 WBC 5.8 RBC 2.35 L Hgb 6.6 L* Hct 21.2 L MCV 90.2 MCH 28.1 MCHC 31.1 L RDW 14.6 Plt Count 232 MPV 9.7 Neut # (Auto) 5.1 Lymph # (Auto) 0.4 L [place] # (Auto) 0.3 Eos # (Auto) 0.0 Baso # (Auto) 0.0 Absolute Nucleated RBC 0.00 Nucleated RBC % 0.0 PD Medical Decision Making ED course ED course: 84yF p/w abdominal cramping, nausea overnight and constipation. benign abdominal exam. IV pepcid ordered in addition to the zofran given by ems. plan to endorse to Dr. Castro at 7am shift change to f/u cbc, abdominal panel, u/a and RVP. Discharge Plan Discharge Condition: Fair Clinical Impression: Anemia, Weakness Prescriptions: No Action calcium lactate 100 mg calcium tablet 100 mg PO QDAY multivitamin Tablet 1 tab PO QAM milk thistle 175 mg tablet 175 mg PO QDAY Rx Instructions: give with meal/snack valacyclovir 500 mg tablet 500 mg PO QDAY hydrochlorothiazide 12.5 mg tablet 12.5 mg PO QAM Qty: 30 5RF acetaminophen 325 mg tablet 650 mg PO QID PRN (Reason: pain) Miguel-Mag Complex 300 mg-150 mg- 400 unit tablet 1 tab PO QDAY gabapentin 300 mg capsule 600 mg PO HS melatonin 5 mg capsule 5 mg PO HS Cholest Off Plus 450 mg capsule 450 mg PO QDAY turmeric-turmeric root extract 450-50 mg capsule 1 cap PO QDAY coenzyme Q10 150 mg capsule 150 mg PO QDAY Qty: 30 0RF Benefiber Sugar Free (dextrin) 3 gram/4 gram powder See Rx Instructions PO QDAY Qty: 90 0RF Rx Instructions: 2 teaspoons orally every day; mix into at least 4 oz water or juice before administering Print Language: Malaysian Stand Alone Forms: PCP List
[2024-06-21 06:38] LABS: BASOPHILS % (AUTO) 0.3 %; EOSINOPHILS % (AUTO) 0.3 %; HCT - HEMATOCRIT 21.2 % (37.0-47.0); LYMPHOCYTES # (AUTO) 0.4 10^3/uL (1.5-3.5); LYMPHOCYTES % (AUTO) 6.2 %; MEAN CORPUSCULAR HEMOGLOBIN 28.1 pg (27.0-31.0); MEAN CORPUSCULAR HGB CONC 31.1 g/dL (32.0-36.0); MEAN CORPUSCULAR VOLUME 90.2 fL (81.0-99.0); MEAN PLATELET VOLUME 9.7 fL (7.9-10.8); MONOCYTES # (AUTO) 0.3 10^3/uL (0.0-1.0); MONOCYTES % (AUTO) 4.5 %; NEUTROPHILS # (AUTO) 5.1 10^3/uL (1.5-6.6); NEUTROPHILS % (AUTO) 88.4 %; PLT - PLATELET COUNT 232 10^3/uL (130-450); RED BLOOD COUNT 2.35 10^6/uL (4.20-5.40); RED CELL DISTRIBUTION WIDTH 14.6 % (12.0-15.0); WHITE BLOOD COUNT 5.8 x10^3/uL (4.8-10.8)
[2024-06-21 06:44] LABS: HGB - HEMOGLOBIN 6.6 g/dL (12.0-16.0)
[2024-06-21 06:55] LABS: ALBUMIN 3.7 g/dL (3.2-5.5); ALBUMIN/GLOBULIN RATIO 2.1 (1.0-2.2); BILIRUBIN,TOTAL 0.3 mg/dL (0.2-1.0); CALCIUM 8.6 mg/dL (8.5-10.3); CREATININE 0.7 mg/dL (0.6-1.3); POTASSIUM 4.7 mmol/L (3.5-4.5); TOTAL PROTEIN 5.5 g/dL (6.4-8.9)
[2024-06-21] MEDS ORDERED: iohexoL-300 100 ML VIAL ONE (07:11)
[2024-06-21] MEDS: FAMOTIDINE 20 MG/2 ML VIAL IVP STA (07:17)
[2024-06-21 07:34] LABS: CORONAVIRUS 229E-RESP PCR NOT DETECTED; CORONAVIRUS HKU1-RESP PCR NOT DETECTED; CORONAVIRUS NL63-RESP PCR NOT DETECTED; CORONAVIRUS OC43-RESP PCR NOT DETECTED; HUMAN METAPNEUMOVIRUS NOT DETECTED; RHINOVIRUS/ENTEROVIRUS NOT DETECTED; SARS-CoV-2 -RESP PCR PANEL NOT DETECTED
[2024-06-21 07:35] LABS: B. PARAPERTUSSIS- RESP PCR PAN NOT DETECTED; B. PERTUSSIS- RESP PCR PANEL NOT DETECTED; C. PNEUMONIAE- RESP PCR PANEL NOT DETECTED; INFLUENZA A- RESP PCR PANEL NOT DETECTED; INFLUENZA B - RESP PCR PANEL NOT DETECTED; M. PNEUMONIAE- RESP PCR PANEL NOT DETECTED; PARAINFLUENZA VIRUS 1 NOT DETECTED; PARAINFLUENZA VIRUS 2 NOT DETECTED; PARAINFLUENZA VIRUS 4 NOT DETECTED; RSV- RESP PCR PANEL NOT DETECTED
--- NOTE | 2024-06-21 07:51 | ED Physician Documentation ---
ED Addendum Addendum Addendum: 84-year-old woman turned over to me at shift change by Dr. Rubio. She came in for abdominal complaints and was found to have a hemoglobin of 6.6 and guaiac positive with dark tarry stool per Dr. Rubio's report to me. Plan for CT imaging and admission. I will give her some Protonix IV. She is not anticoagulated Care from Dr. Rubio at 7 AM shift change. Briefly this is an 84-year-old woman who came in for abdominal cramps and weakness. She is guaiac positive. Hemoglobin 6.6. She is not anticoagulated. CT imaging demonstrates constipation and somewhat large gallbladder. She was seen and examined at the bedside. She is hemodynamically stable with heart rate around 90 and blood pressure 147/74. Blood is being prepared and she has received an IV PPI. Spoke with Dr. Oneil, our on-call surgeon at 8:40 AM and he will see in consult and defers to medicine for admission. Spoke with Dr. Lindsay for observation 8:51 AM Discharge Plan Discharge Patient Disposition: ED Place in Observation Condition: Fair Clinical Impression: Anemia, Weakness, Acute GI bleeding Prescriptions: No Action calcium lactate 100 mg calcium tablet 100 mg PO QDAY multivitamin Tablet 1 tab PO QAM milk thistle 175 mg tablet 175 mg PO QDAY Rx Instructions: give with meal/snack valacyclovir 500 mg tablet 500 mg PO QDAY hydrochlorothiazide 12.5 mg tablet 12.5 mg PO QAM Qty: 30 5RF acetaminophen 325 mg tablet 650 mg PO QID PRN (Reason: pain) Miguel-Mag Complex 300 mg-150 mg- 400 unit tablet 1 tab PO QDAY gabapentin 300 mg capsule 600 mg PO HS melatonin 5 mg capsule 5 mg PO HS Cholest Off Plus 450 mg capsule 450 mg PO QDAY turmeric-turmeric root extract 450-50 mg capsule 1 cap PO QDAY coenzyme Q10 150 mg capsule 150 mg PO QDAY Qty: 30 0RF Benefiber Sugar Free (dextrin) 3 gram/4 gram powder See Rx Instructions PO QDAY Qty: 90 0RF Rx Instructions: 2 teaspoons orally every day; mix into at least 4 oz water or juice before administering Print Language: Icelandic Stand Alone Forms: PCP List
--- NOTE | 2024-06-21 08:36 | CT Report ---
PROCEDURE: CT Abdomen/Pelvis W INDICATIONS: IV only, abd pain CONTRAST: omni 300, 100 TECHNIQUE: After the administration of intravenous contrast, a CT scan of the abdomen and pelvis was performed. Images were recorded and evaluated at appropriate window settings. Reformats: coronal and sagittal. F or radiation dose reduction, the following was used: automated exposure control, adjustment of mA and /or kV according to patient size. COMPARISON: 2222. FINDINGS: Image quality: Diagnostic. Lower chest: Bibasilar scarring/atelectasis is seen. Heart size is enlarged, no pericardial effusion. Liver: No solid mass. Gallbladder: Distended gallbladder. No radiopaque stones or wall thickening. Biliary tree: No intrahepatic or extrahepatic dilation, accounting for age. Spleen: No splenomegaly. Pancreas: No pancreatic ductal dilation. Adrenals: No adrenal nodule. Kidneys and ureters: No hydronephrosis. No renal cystic lesion which requires follow up. No solid mas s. Stomach, bowel and peritoneum: There is no evidence of bowel obstruction. Moderate fecal stasis in th e colon is seen extending to distal sigmoid and proximal rectum. No gross abnormal bowel wall thicken ing or mesenteric fat stranding. No focal inflammatory changes are noted in right lower quadrant abdo men. No abscess collection. No free fluid of free air. Lymph nodes: No central or retroperitoneal adenopathy. Vessels: No infrarenal aortic aneurysm. Patent portal vein. PELVIS Reproductive organs: Unremarkable. Bladder: No abnormal wall thickening. Pelvic lymph nodes: No pelvic adenopathy by size criteria. Bones: No aggressive osseous abnormality. Scoliosis of lower thoracic and lumbar spine is seen. Degen erative endplate changes are noted throughout lower thoracic and lumbar spine. No acute vertebral bod y compression fracture. Other: No significant ventral or inguinal hernia. IMPRESSION: 1. Mild to moderate constipation. No evidence of bowel obstruction. No gross abnormal bowel wall thic kening. No secondary CT signs of acute appendicitis. No free fluid of free air. 2. Distended gallbladder. No radiopaque gallstones or gallbladder wall thickening. Gallbladder contra ctility disorder cannot be excluded. No significant biliary ductal dilatation. 3. No obstructing renal stones or hydronephrosis. Reviewed by: Berto Milian MD on 06/21/2024 8:35 AM PDT Approved by: Berto Milian MD on 06/21/2024 8:35 AM PDT Station ID: [id number]
--- NOTE | 2024-06-21 08:51 | HISTORY & PHYSICAL EXAMINATION ---
Chief Complaint Chief Complaint Chief Complaint: Fatigue, weakness, nausea History of Present Illness Admitted From Admitted From:: Home History Obtained From Records Reviewed: Yes History obtained from: Patient and patient's daughter at bedside Exam Limitations: None History of Present Illness HPI Comment/Other: Patient is a 84-year-old female with a history of chronic pain with NSAID use at home, hypertension who presents with worsening fatigue, and increasing tiredness over the last two weeks. She states that initially she thought she had the flu, but never really got better. She endorses some dark stools over the last few weeks. She does state that she does not take any iron supplements. She has no prior history of anemia. She is not on any blood thinners. She does take Aleve a few times a day for her lower back pain. She has had some nausea over the last few days, but no vomiting. She has not seen any bright red blood in her stool. She does not drink any alcohol. She has had a colonoscopy in the past, in 2014, and she was told she had diverticulosis, as well as 1 polyp which was removed. She has never had a EGD done before. She does endorse some feelings of dysphagia, and food being stuck. In the emergency room, patient was vitally stableher blood pressure was 120/70, heart rate was 94, respiratory rate was 16, oxygen saturation was 95% on room air, and she was afebrile. Lab work was reviewed, and it did show hemoglobin of 6.6; of note, checked in 01/17, it was 11.9. Her sodium was low at 132, potassium was mildly elevated at 4.7. Her creatinine was within normal limits, and her glucose was mildly elevated at 106. UA was positive for nitrites. She was not having any urinary symptoms. Rapid respiratory panel was negative. Abdomen/pelvis CT showed mild to moderate constipation, as well as a distended gallbladder with no gallbladder wall thickening. She was admitted for possible GI bleed. Surgery was consultedplan for EGD this afternoon. Meds/Allgy Home Medications Ambulatory Orders Medication Instructions Recorded Confirmed milk thistle 175 mg tablet 175 mg PO QDAY 03/02/24 06/21/24 multivitamin 1 tab PO QAM 03/02/24 06/21/24 valacyclovir 500 mg tablet 500 mg PO QDAY PRN cold sores 03/02/24 06/21/24 calcium 300 mg (carb, 1 tab PO QDAY 03/09/24 06/21/24 citrate)-magnesium 150 mg-vit D3 400 unit tablet (Miguel-Mag Complex) coenzyme Q10 150 mg capsule 150 mg PO QDAY #30 caps 03/09/24 06/21/24 gabapentin 300 mg capsule 600 mg PO BID 03/09/24 06/21/24 melatonin 5 mg capsule 5 mg PO HS 03/09/24 06/21/24 turmeric 450 mg-turmeric root 1 cap PO QDAY 03/09/24 06/21/24 extract 50 mg capsule wheat dextrin 3 gram/4 gram oral See Rx Instructions PO QDAY #90 03/09/24 06/21/24 powder (Benefiber Sugar Free grams (dextrin)) methocarbamol 500 mg tablet 1,000 mg PO BID 06/21/24 06/21/24 Allergies Allergies Allergy/AdvReac Type Severity Reaction Status Date / Time No Known Drug Allergies Allergy Verified 03/02/24 21:04 PFSH Active Problems All Active Problems (Updated 06/21/24 @ 14:44 by Oliverio Lindsay MD) Acute GI bleeding (Acute) Weakness (Acute) Anemia (Acute) Essential hypertension (Acute 07/31/09) Spinal stenosis, lumbar (Acute) Lumbar post-laminectomy syndrome (Acute 12/23/22) Arthritis of both hips (Acute 12/04/18) Pelvic floor instability (Acute 08/07/18) Menopausal syndrome (Acute) Female cystocele (Acute) Aphthous ulcer of mouth (Acute 09/13/07) Venous insufficiency of lower extremity (Acute 12/09/20) Constipation by delayed colonic transit (Acute) Diverticulosis of colon (Acute 12/23/22) Asymptomatic cholelithiasis (Acute 12/23/22) Insomnia (Acute) Allergic rhinitis (Acute) Venous insufficiency (Acute) Other forms of scoliosis, thoracolumbar region (Acute) Pulmonary fibrosis (Acute) Medical History Medical History Sprain of other ligament of left ankle, subsequent encounter Retinal artery branch occlusion, left eye (02/07/18) Personal history of poliomyelitis Surgical History Surgical History Status post reverse arthroplasty of right shoulder Fall 2023 Status post reverse arthroplasty of left shoulder 09/2019 H/O colonoscopy 05/2016, sigmoid + descending diverticulosis w/ internal hemorrhoids S/P lumbar laminectomy 08/2015, bilateral L1-L5 S/p bilateral carpal tunnel release ~2000 History of episiotomy 2x with vaginal births, S/P tonsillectomy and adenoidectomy Age 20 Family History Family History Father Colon cancer Mother CAD (coronary artery disease) Heart attack Sister Lung cancer Sister Ovarian cancer Social History Social History Smoking Status: Never smoker Second hand tobacco smoke exposure: Yes Do you dip or chew tobacco?: No Do you vape?: No Living arrangement: At home Marital Status: Living Condition: With spouse/s.o. More Information: 4 children Relationship: Level: Independent Home Mobility Equipment: Cane and Walker Do you feel safe in your home environment?: Yes Suffered physical, verbal, emotional, or financial abuse?: No History of Abuse: No ETOH Use: None Substance Use: denies use Are you sexually active?: No Occupation: [place] at [employer] Retired: Yes Service: No POLST Patient has POLST: No POLST Status: Full Code Review of Systems Constitutional Reports: Fatigue, Chills, Malaise, Weakness and Poor appetite; Denies: Fever, Diaphoresis or Night sweats Eyes Denies: Pain, Irritation, Blurry vision, Floaters, Field loss or Vision loss Ears, nose, mouth, and throat Denies: Ear pain, Ear discharge, Hearing loss, Hearing aids, Tinnitus, Change in hearing, Neck pain or Throat swelling Cardiovascular Reports: lightheadedness; Denies: Irregular heart rate, chest pain, palpitations, edema, swelling of feet/ankles, Syncope or shortness of breath with exertion Respiratory Denies: Shortness of breath, Cough, Sputum production, Change in phlegm color or Wheezing Gastrointestinal Reports: Nausea, Poor appetite, Constipation and other (Dark, tarry stools); Denies: Abdominal pain, Abdominal distention, Vomiting or Diarrhea Genitourinary Denies: Painful urination, Urinary frequency, Urinary urgency, Nocturia, Urinary incontinence or Blood in urine Musculoskeletal Denies: Back pain, Neck pain, Extremity pain or Extremity swelling Integumentary/Breast Denies: Rash, Itching, Dryness, Redness or Skin pain Neurological Reports: General weakness; Denies: Headache, Focal weakness, Weakness in extremities, Numbness in extremities or Dizziness Psychiatric Denies: Depression, Anxiety, Mood swings or Panic attacks Endocrine Reports: Fatigue; Denies: Excessive urination, Excessive thirst or Polyphagia Hematologic/Lymphatic Reports: Anemia; Denies: Easy bruising, Petechiae or Easy bleeding Allergic/Immunologic Denies: Throat swelling, Tongue swelling, Facial swelling or Wheezing Prior Level of Functionality: Fully functional and independent at baseline. Lives with . Exam Constitutional normal general appearance, no apparent distress and average body habitus HENMT normocephalic and head/scalp atraumatic Eyes PERRL, EOMs intact bilaterally and conjunctivae normal Lymph no lymphadenopathy noted Chest inspection of chest normal Respiratory breath sounds equal bilaterally, normal respiratory effort, clear to auscultation bilaterally, no wheezes, no rales and no retractions Cardiovascular heart rate abnormal (tachycardic), regular rhythm noted, no gallop, no rub and no murmur Gastrointestinal abdomen normal to inspection, abdomen soft to palpation, nontender to palpation and normoactive bowel sounds Genitourinary no CVA tenderness Extremities normal to inspection, normal to palpation and no tenderness Neurology no movement abnormality noted and no focal motor deficit noted Psychiatry mental status grossly normal, oriented x3, thought process normal, cooperative and affect normal Skin skin color normal, no rash, no lesions and no ecchymosis noted Conclusion/Plan Problem List (1) Acute GI bleeding: Plan: Patient presented with dark stools, fatigue over the last 2 weeks. Her hemoglobin was 6.6, with baseline around 12. Receiving 1 unit of packed red blood cells currently. Continue to trend H&H every 8 hours. Started her on Protonix 40 mg twice daily. Plan for EGD today, surgery is following. Advised to abstain from NSAID use, including Aleve. (2) Weakness: Plan: Likely due to above. Patient is still able to ambulate independently. Pending clinical course, may need PT/OT evaluation. (3) Anemia: Plan: See above. EGD is pending. Qualifiers: Anemia type: unspecified type Qualified Code(s): D64.9 - Anemia, unspecified (4) Essential hypertension: Plan: Patient takes hydrochlorothiazide 12.5 mg daily, and follows closely with her PCP. Held at this time due to active GI bleed. Will resume tomorrow. (5) Lumbar post-laminectomy syndrome: Plan: Patient with a history of laminectomy, and continued pain after. Continue gabapentin, methocarbamol as per home dosing. (6) Aphthous ulcer of mouth: Plan: Does not currently have an ulcer. Does take Valtrex when needed. Lab Results Lab results reviewed: Yes 06/21/24 06:33 06/21/24 06:33 Diagnostic Imaging Results Diagnostic Imaging Results: positive Final report reviewed EKG Results EKG Interpreted Independently: Yes EKG Findings: Reviewed EKG from 01/17. Core Measures Anticipated LOS I expect patient to be DC'd or transferred within 96 hours.: Yes Issues Hospital Issues and Management Plan: None anticipated. DVT/VTE - Prophylaxis VTE/DVT Device ordered at admit?: Yes VTE/DVT Prophylaxis med ordered at admit?: No Not Ordered - Medical Reason: Contraindicated
[2024-06-21] MEDS ORDERED: ONDANSETRON 4 MG/2 ML VIAL IVP PRN ×2 (09:14→09:58)
[2024-06-21] MEDS ORDERED: ACETAMINOPHEN 500 MG TABLET PO PRN (09:14)
[2024-06-21] MEDS ORDERED: METOCLOPRAMIDE 10 MG/2 ML VIAL IVP PRN (09:14)
[2024-06-21 09:29] LABS: BILIRUBIN,URINE NEGATIVE (NEGATIVE); CLARITY,URINE CLEAR (CLEAR); GLUCOSE, URINE (UA) NEGATIVE (NEGATIVE); KETONES,URINE (UA) NEGATIVE (NEGATIVE); LEUKOCYTE ESTERASE, URINE NEGATIVE (NEGATIVE); NITRITE,URINE POSITIVE (NEGATIVE); OCCULT BLOOD,URINE NEGATIVE (NEGATIVE); PH,URINE 6.5 PH (5.0-7.5); PROTEIN,URINE NEGATIVE (NEGATIVE); UROBILINOGEN,URINE 0.2 (NORMAL) E.U./dL (NORMAL)
[2024-06-21 09:36] LABS: BACTERIA,URINE None Seen /HPF (None Seen); RBC,URINE None Seen /HPF (0-5); SQUAMOUS EPITHELIAL CELL,UR NONE SEEN (<= Few); WBC,URINE 0-3 /HPF (0-5)
[2024-06-21] MEDS ORDERED: ONDANSETRON ODT 4 MG TABLET TL PRN (09:58)
[2024-06-21] MEDS ORDERED: SODIUM CHLORIDE FLUSH 0.9% 10 ML SYRINGE IVP PRN (09:58)
[2024-06-21] MEDS: iohexoL-300 100 ML VIAL IVP ONE (10:19)
--- NOTE | 2024-06-21 10:50 | ANESTHESIA PROCEDURE NOTE ---
Pre-Anesthesia VS, & Labs Diagnosis Surgical Diagnosis:: Anemia Procedure Procedure: EGD Vitals Vital Signs: Temp Pulse Resp BP Pulse Ox 36.3 C L 96 20 150/85 H 95 06/21/24 10:07 06/21/24 10:07 06/21/24 10:07 06/21/24 10:07 06/21/24 10:07 NPO NPO: >8 hours Is Patient ?: Not Applicable Lab Results Current Lab Results: Laboratory Tests 06/21/24 06:57: Blood Type A POSITIVE, Antibody Screen NEGATIVE, Crossmatch IS Only See Detail 06/21/24 06:35: Blood Type Recheck A POSITIVE 06/21/24 06:33: WBC 5.8, RBC 2.35 L, Hgb 6.6 L*, Hct 21.2 L, MCV 90.2, MCH 28.1, MCHC 31.1 L, RDW 14.6, Plt Count 232, MPV 9.7, Neut # (Auto) 5.1, Lymph # (Auto) 0.4 L, Wagoner # (Auto) 0.3, Eos # (Auto) 0.0, Baso # (Auto) 0.0, Absolute Nucleated RBC 0.00, Nucleated RBC % 0.0, Sodium 132 L, Potassium 4.7 H, Chloride 102, Carbon Dioxide 25, Anion Gap 5.0 L, BUN 51 H, Creatinine 0.7, Estimated GFR (MDRD) 80 L, Glucose 106 H, Calcium 8.6, Total Bilirubin 0.3, AST 19, ALT 11, Alkaline Phosphatase 50, Total Protein 5.5 L, Albumin 3.7, Globulin 1.8 L, Albumin/Globulin Ratio 2.1, Lipase 33 Lab results reviewed: Yes 06/21/24 06:33 06/21/24 06:33 Meds/Allgy Home Medications Ambulatory Orders Medication Instructions Recorded Confirmed calcium lactate 100 mg PO QDAY 03/02/24 03/04/24 milk thistle 175 mg tablet 175 mg PO QDAY 03/02/24 03/04/24 multivitamin 1 tab PO QAM 03/02/24 03/04/24 valacyclovir 500 mg tablet 500 mg PO QDAY 03/02/24 03/04/24 hydrochlorothiazide 12.5 mg tablet 12.5 mg PO QAM #30 tabs 03/04/24 03/04/24 acetaminophen 325 mg tablet 650 mg PO QID PRN pain 03/09/24 03/09/24 calcium 300 mg (carb, 1 tab PO QDAY 03/09/24 03/09/24 citrate)-magnesium 150 mg-vit D3 400 unit tablet (Miguel-Mag Complex) coenzyme Q10 150 mg capsule 150 mg PO QDAY #30 caps 03/09/24 03/09/24 gabapentin 300 mg capsule 600 mg PO HS 03/09/24 03/09/24 melatonin 5 mg capsule 5 mg PO HS 03/09/24 03/09/24 plant stanol nieves 450 mg capsule 450 mg PO QDAY 03/09/24 03/09/24 (Cholest Off Plus) turmeric 450 mg-turmeric root 1 cap PO QDAY 03/09/24 03/09/24 extract 50 mg capsule wheat dextrin 3 gram/4 gram oral See Rx Instructions PO QDAY #90 03/09/24 03/09/24 powder (Benefiber Sugar Free grams (dextrin)) Allergies Allergies Allergy/AdvReac Type Severity Reaction Status Date / Time No Known Drug Allergies Allergy Verified 03/02/24 21:04 PFS Active Problems All Active Problems (Updated 06/21/24 @ 08:44 by Jaspal Castro MD) Acute GI bleeding (Acute) Weakness (Acute) Anemia (Acute) Essential hypertension (Acute 07/31/09) Spinal stenosis, lumbar (Acute) Lumbar post-laminectomy syndrome (Acute 12/23/22) Arthritis of both hips (Acute 12/04/18) Pelvic floor instability (Acute 08/07/18) Menopausal syndrome (Acute) Female cystocele (Acute) Aphthous ulcer of mouth (Acute 09/13/07) Venous insufficiency of lower extremity (Acute 12/09/20) Constipation by delayed colonic transit (Acute) Diverticulosis of colon (Acute 12/23/22) Asymptomatic cholelithiasis (Acute 12/23/22) Insomnia (Acute) Allergic rhinitis (Acute) Venous insufficiency (Acute) Other forms of scoliosis, thoracolumbar region (Acute) Pulmonary fibrosis (Acute) Medical History Medical History Sprain of other ligament of left ankle, subsequent encounter Retinal artery branch occlusion, left eye (02/07/18) Personal history of poliomyelitis Surgical History Surgical History Status post reverse arthroplasty of right shoulder Fall 2023 Status post reverse arthroplasty of left shoulder 09/2019 H/O colonoscopy 05/2016, sigmoid + descending diverticulosis w/ internal hemorrhoids S/P lumbar laminectomy 08/2015, bilateral L1-L5 S/p bilateral carpal tunnel release ~2000 History of episiotomy 2x with vaginal births, S/P tonsillectomy and adenoidectomy Age 20 Family History Family History Father Colon cancer Mother CAD (coronary artery disease) Heart attack Sister Lung cancer Sister Ovarian cancer Social History Social History Smoking Status: Never smoker Second hand tobacco smoke exposure: Yes Do you dip or chew tobacco?: No Do you vape?: No Living arrangement: At home Marital Status: Living Condition: With spouse/s.o. More Information: 4 children Relationship: Level: Independent Home Mobility Equipment: Cane and Walker Do you feel safe in your home environment?: Yes Suffered physical, verbal, emotional, or financial abuse?: No History of Abuse: No ETOH Use: None Substance Use: denies use Are you sexually active?: No Occupation: [place] at [employer] Retired: Yes Service: No POLST Patient has POLST: No Anesthesia Exam (Expanded) Exam General: Alert, Oriented x3 and Cooperative Dental: WNL Mouth Openin Fingerbreadth Neck Mobility: Normal Mallampati classification: II Thyromental Distance: 4-6 cm Plan Plan Anesthesia Type: General and Total IV Consent for Procedure(s) Verified and Reviewed: Yes Code Status: Attempt Resuscitation ASA Classification ASA classification: 3-Severe systemic disease Is this case an emergency?: No
--- NOTE | 2024-06-21 12:07 | PHARMACY PROGRESS NOTE ---
Best Possible Medication History Admit Date and Time: 06/21/24 [id number] Home Medications Medication Instructions Recorded Confirmed Type milk thistle 175 mg tablet 175 mg PO QDAY 03/02/24 06/21/24 History multivitamin 1 tab PO QAM 03/02/24 06/21/24 History valacyclovir 500 mg tablet 500 mg PO QDAY PRN cold sores 03/02/24 06/21/24 History calcium 300 mg (carb, 1 tab PO QDAY 03/09/24 06/21/24 History citrate)-magnesium 150 mg-vit D3 400 unit tablet (Miguel-Mag Complex) coenzyme Q10 150 mg capsule 150 mg PO QDAY #30 caps 03/09/24 06/21/24 Rx gabapentin 300 mg capsule 600 mg PO BID 03/09/24 06/21/24 History melatonin 5 mg capsule 5 mg PO HS 03/09/24 06/21/24 History turmeric 450 mg-turmeric root 1 cap PO QDAY 03/09/24 06/21/24 History extract 50 mg capsule wheat dextrin 3 gram/4 gram oral See Rx Instructions PO QDAY #90 03/09/24 06/21/24 Rx powder (Benefiber Sugar Free grams (dextrin)) methocarbamol 500 mg tablet 1,000 mg PO BID 06/21/24 06/21/24 History Processed by: Pharmacy Medications reviewed in ED?: No Medication History completed: Yes Patient Interview: Completed Secondary Source(s): Insurance records [facility] Statement: Per [facility] interview with patient and review of [employer] records. As the person ultimately responsible for medication therapy, providers are able to order a medication from an existing home medication list in [facility] via the "Reconcile Routine" prior to Confirmation of that medication by shipping support clerk. Such practice is discouraged except when the physician, in their clinical judgment, deems that a medical need exists for a medication without regard to previous use.
[2024-06-21] MEDS: LIDOCAINE/PRILOCAINE 2.5% CREAM 5 GM TUBE TOP ONE (14:37)
[2024-06-21] MEDS: LACTATED RINGERS 1,000 ML IV SCH (14:52)
[2024-06-21] MEDS ORDERED: LIDOCAINE-MPF 2% 5 ML VIAL ONE (15:06)
[2024-06-21 15:54] LABS: HCT - HEMATOCRIT 23.4 % (37.0-47.0); HGB - HEMOGLOBIN 7.2 g/dL (12.0-16.0)
[2024-06-21] MEDS: SODIUM CHLORIDE FLUSH 0.9% 10 ML SYRINGE IVP SCH (17:33)
--- NOTE | 2024-06-21 18:29 | ANESTHESIA POST OP EVALUATION ---
Anesthesia Post Eval Post Anesthesia Eval Vitals: Last Vital Signs Temp 36.9 C 06/21/24 17:33 Pulse 93 06/21/24 17:33 Resp 18 06/21/24 17:33 BP 146/83 H 06/21/24 17:33 Pulse Ox 96 06/21/24 17:33 CV Function Including HR & BP: Stable Pain Control: Satisfactory Nausea & Vomiting: Negative Mental Status: Baseline Respiratory Status: Airway Patent Hydration Status: Satisfactory Anesthesia Complications: None
[2024-06-21] MEDS: MELATONIN 3 MG TABLET PO SCH (20:13)
[2024-06-21] MEDS: GABAPENTIN 300 MG CAPSULE PO SCH (20:13)
[2024-06-21] MEDS: methocarbamoL 500 MG TABLET PO SCH (20:13)
[2024-06-21] MEDS: PANTOPRAZOLE 40 MG VIAL IVP SCH (20:14)
[2024-06-22 06:31] LABS: HCT - HEMATOCRIT 22.9 % (37.0-47.0); HGB - HEMOGLOBIN 7.3 g/dL (12.0-16.0); MEAN CORPUSCULAR HEMOGLOBIN 27.4 pg (27.0-31.0); MEAN CORPUSCULAR HGB CONC 31.9 g/dL (32.0-36.0); MEAN CORPUSCULAR VOLUME 86.1 fL (81.0-99.0); MEAN PLATELET VOLUME 9.9 fL (7.9-10.8); RED BLOOD COUNT 2.66 10^6/uL (4.20-5.40); RED CELL DISTRIBUTION WIDTH 15.5 % (12.0-15.0); WHITE BLOOD COUNT 4.5 x10^3/uL (4.8-10.8)
[2024-06-22 06:52] LABS: CALCIUM 8.2 mg/dL (8.5-10.3); CREATININE 0.6 mg/dL (0.6-1.3); MAGNESIUM 2.2 mg/dL (1.7-2.3)
[2024-06-22] MEDS: MULTIVITAMIN TABLET PO SCH (09:03)
--- NOTE | 2024-06-22 13:21 | PROVIDER PROGRESS NOTE ---
Subjective Subjective Subjective: Overnight, patient had 3 bowel movements. Last one was large, and dark and tarry. She endorses some lightheadedness and dizziness when she is standing up. She received 2 units of blood yesterday, and her hemoglobin went only from 6.6- 7.3. EGD was completed, and showed no acute abnormalities. Because she continues to have bloody bowel movements, and her hemoglobin has not made much of an improvement, I did speak with general surgery. Plan is to prep her tonight, and complete colonoscopy while inpatient tomorrow. Current Medications Current Medications Current Medications: Current Medications Generic Name Dose Route Start Last Admin Trade Name Freq PRN Reason Stop Dose Admin Acetaminophen 500 mg 06/21/24 09:14 Acetaminophen 500 Mg Tablet PO Q4HR PRN Pain or Fever > 38C (100.4F) Acetaminophen 650 mg 06/21/24 09:58 Acetaminophen 325 Mg Tablet PO Q4HR PRN Pain 1 to 4, or Fever Gabapentin 600 mg 06/21/24 21:00 06/22/24 09:03 Gabapentin 300 Mg Capsule PO 600 mg BID IVONNE Administration Lactated Ringer's 1,000 mls @ 75 mls/hr 06/21/24 10:00 06/22/24 06:40 Lr IV 75 mls/hr .[id number] IVONNE Administration Melatonin 3 mg 06/21/24 21:00 06/21/24 20:13 Melatonin 3 Mg Tablet PO 3 mg QPM IVONNE Administration Methocarbamol 1,000 mg 06/21/24 21:00 06/22/24 09:03 Methocarbamol 500 Mg Tablet PO 1,000 mg BID IVONNE Administration Metoclopramide HCl 10 mg 06/21/24 09:14 Metoclopramide 10 Mg/2 Ml Vial IVP PRN PRN Nausea / Vomiting Multivitamins 1 tab 06/22/24 08:00 06/22/24 09:03 Multivitamin Tablet PO 1 tab DAILYWM IVONNE Administration Ondansetron HCl 4 mg 06/21/24 09:14 Ondansetron 4 Mg/2 Ml Vial IVP Q30M PRN Nausea / Vomiting Ondansetron HCl 4 mg 06/21/24 09:58 Ondansetron Odt 4 Mg Tablet TL Q6HR PRN Nausea / Vomiting Ondansetron HCl 4 mg 06/21/24 09:58 Ondansetron 4 Mg/2 Ml Vial IVP Q6HR PRN Nausea / Vomiting Pantoprazole Sodium 40 mg 06/21/24 21:00 06/22/24 09:03 Pantoprazole 40 Mg Vial IVP 40 mg BID IVONNE Administration Polyethylene Glycol/Electrolytes 4,000 ml 06/22/24 16:00 Peg 3350/Na Sulf,Bicarb,Cl/Kcl 4,000 Ml Bottle PO 06/22/24 16:01 ONCE ONE Sodium Chloride 10 ml 06/21/24 09:58 Sodium Chloride Flush 0.9% 10 Ml Syringe IVP PRN PRN NEEDED PER PROVIDER ORDERS Sodium Chloride 10 ml 06/21/24 17:00 06/22/24 09:04 Sodium Chloride Flush 0.9% 10 Ml Syringe IVP 10 ml 0100,0900,1700 IVONNE Administration Objective Vital Signs/Intake & Output Reviewed Vital Signs: Yes Vital Signs: Vital Signs x48h Temp Pulse Resp BP Pulse Ox 06/22/24 13:11 98.1 F 06/22/24 11:50 97.9 F 70 18 140/64 H 97 06/22/24 09:02 99 06/22/24 08:57 97.5 F L 76 20 99/48 L Intake & Output: Intake & Output 06/19/24 06/20/24 06/21/24 06/22/24 23:59 23:59 23:59 23:59 Intake Total 660 / 660 1560 / 1560 Balance 660 / 660 1560 / 1560 Weight (kg) 57.7 kg Objective General Appearance: positive No acute distress and Alert; negative Anxious Eyes Bilateral: positive Normal inspection, PERRL, EOMI and Other ENT: positive Other (bilateral hearing aids in place) Neck: positive Nml inspection, Thyroid nml and No JVD Respiratory: positive Chest non-tender and No respiratory distress; negative Wheezes, Rales or Rhonchi Cardiovascular: positive Regular rate & rhythm, No murmur and No gallop Abdomen: positive Non-tender and No organomegaly; negative Tenderness, Guarding, Hepatomegaly or Splenomegaly Rectal: positive Non-tender, Stool - heme POS and Black stool Back: positive Nml inspection; negative CVA tenderness (R) or CVA tenderness (L) Skin: positive Color nml, No rash, Warm and Dry Extremities: positive Non-tender, Full ROM and Nml appearance Neurologic/Psychiatric: positive Oriented x3 and Mood/affect nml Lab Results 06/22/24 06:23 06/22/24 06:23 Other Labs: Lab Results x24hrs 06/22/24 06/21/24 06/21/24 Range/Units 06:23 15:44 06:57 WBC 4.5 L (4.8-10.8) x10^3/uL RBC 2.66 L (4.20-5.40) 10^6/uL Hgb 7.3 L 7.2 L (12.0-16.0) g/dL Hct 22.9 L 23.4 L (37.0-47.0) % MCV 86.1 (81.0-99.0) fL MCH 27.4 (27.0-31.0) pg MCHC 31.9 L (32.0-36.0) g/dL RDW 15.5 H (12.0-15.0) % Plt Count 208 (130-450) 10^3/uL MPV 9.9 (7.9-10.8) fL Sodium 135 (135-145) mmol/L Potassium 4.0 (3.5-4.5) mmol/L Chloride 105 (101-111) mmol/L Carbon Dioxide 26 (21-32) mmol/L Anion Gap 4.0 L (6-13) BUN 29 H (6-20) mg/dL Creatinine 0.6 (0.6-1.3) mg/dL Estimated GFR (MDRD) 95 (>89) Glucose 98 (74-104) mg/dL Calcium 8.2 L (8.5-10.3) mg/dL Magnesium 2.2 (1.7-2.3) mg/dL Blood Type A POSITIVE Antibody Screen NEGATIVE Crossmatch IS Only See Detail Diagnostic Imaging Diagnostic Imaging Results: positive Final report reviewed Assessment/Plan Problem List (1) Acute GI bleeding: Impression: Patient presents with 2 to 3 weeks of worsening fatigue, as well as dark tarry stools. Hemoglobin down to 6.3 on admission, with baseline around 12. Received 2 units of packed red blood cells, with only slight improvement to 7.3. EGD completed yesterday with no acute abnormalities. With only minimal response to transfusion, and continued black bowel movements overnight as well as symptomatic dizziness, plan is to complete colonoscopy inpatient. Will prep the patient tonight, and plan for colonoscopy tomorrow, 06/23. (2) Weakness: Impression: Likely due to above. Patient is still able to ambulate independently. Pending clinical course, may need PT/OT evaluation. (3) Anemia: Impression: See above. Patient received 2 units packed red blood cells, and hemoglobin only went from 6.6-7.3. She continues to have dark tarry stools. Continue to trend H&H, transfuse for hemoglobin less than 7. Qualifiers: Anemia type: unspecified type Qualified Code(s): D64.9 - Anemia, unspecified (4) Essential hypertension: Impression: Patient takes hydrochlorothiazide 12.5 mg daily, and follows closely with her PCP. Held at this time due to active GI bleed. Will resume when stable. (5) Lumbar post-laminectomy syndrome: Impression: Patient with a history of laminectomy, and continued pain after. Continue gabapentin, methocarbamol as per home dosing. (6) Aphthous ulcer of mouth: Impression: Does not currently have an ulcer. Does take Valtrex when needed.
--- NOTE | 2024-06-22 14:32 | PROVIDER PROGRESS NOTE ---
Subjective General Admit Date: 06/22/24 Procedure Date: 06/21/24 Post Op Days: 2 Procedure Performed: EGD Other Other Information/Narrative: No bleeding site was seen on EGD yesterday and patient's H&H continues to fall. Review of Systems Status of ROS: 10 or more systems reviewed and unremarkable except as noted in history and below Exam Constitutional normal general appearance and no apparent distress HENMT normocephalic, head/scalp atraumatic, hearing grossly normal bilaterally and external ears normal Eyes conjunctivae normal and no scleral icterus Neck/C-Spine visual inspection normal, trachea midline and no meningeal signs Respiratory breath sounds equal bilaterally, normal respiratory effort and clear to auscultation bilaterally Cardiovascular normal heart rate noted, regular rhythm noted, no gallop, no rub and no murmur Gastrointestinal abdomen normal to inspection, abdomen soft to palpation and nontender to palpation Extremities normal to inspection and normal to palpation Neurology no movement abnormality noted, no focal motor deficit noted and no sensory deficits noted Psychiatry mental status grossly normal, oriented x3, thought process normal, cooperative and affect normal A bit anxious. Skin skin color normal, no rash, no lesions and no ecchymosis noted Impression/Plan Problem List (1) Acute GI bleeding: Plan: Colonoscopy with possible biopsies and/or polypectomies. Indications, procedure, alternatives (such as barium enema, Cologuard and even no procedure at all) and risks including but not limited to perforation requiring operative repair, bleeding with its risks, and were fully explained to her. I home diagrams explaining the colonic anatomy and the proposed procedure and handed it to her. Review of her history does not reveal any significant systemic disease that would contraindicate use of conscious sedation or MAC anesthesia. All questions were fully answered. Verbal and written consent was obtained. The patient in preparation for her colonoscopy will be n.p.o. and her colon will be mechanically prepped. 45 minutes of [id number]-ry-fbuo time spent with the patient the majority of which was spent in discussion, coordination of their care and completion of the requisite paperwork CPT 94028 (2) Weakness: (3) Anemia: Qualifiers: Anemia type: unspecified type Qualified Code(s): D64.9 - Anemia, unspecified (4) Essential hypertension: (5) Lumbar post-laminectomy syndrome: (6) Aphthous ulcer of mouth:
[2024-06-22] MEDS: ACETAMINOPHEN 325 MG TABLET PO PRN (14:55)
[2024-06-22 15:11] LABS: HCT - HEMATOCRIT 24.8 % (37.0-47.0); HGB - HEMOGLOBIN 7.7 g/dL (12.0-16.0)
[2024-06-22] MEDS: GABAPENTIN 300 MG CAPSULE PO SCH (18:08)
[2024-06-22] MEDS: valACYclovir 500 MG TABLET PO SCH (18:08)
[2024-06-22] MEDS: methocarbamoL 500 MG TABLET PO SCH (18:09)
[2024-06-22] MEDS: SODIUM/POTASSIUM/MAG SULFATES 354 ML PREP KIT PO SCH (18:29)
[2024-06-22] MEDS: PEG 3350/NA SULF,BICARB,CL/KCL 4,000 ML BOTTLE PO ONE (18:52)
[2024-06-23] MEDS ORDERED: COD LIVER OIL/ZINC OXIDE 113 GM TUBE TOP PRN (03:33)
[2024-06-23 04:37] LABS: HCT - HEMATOCRIT 22.6 % (37.0-47.0); HGB - HEMOGLOBIN 7.2 g/dL (12.0-16.0); MEAN CORPUSCULAR HEMOGLOBIN 27.6 pg (27.0-31.0); MEAN CORPUSCULAR HGB CONC 31.9 g/dL (32.0-36.0); MEAN CORPUSCULAR VOLUME 86.6 fL (81.0-99.0); MEAN PLATELET VOLUME 10.2 fL (7.9-10.8); RED BLOOD COUNT 2.61 10^6/uL (4.20-5.40); RED CELL DISTRIBUTION WIDTH 15.3 % (12.0-15.0); WHITE BLOOD COUNT 5.6 x10^3/uL (4.8-10.8)
[2024-06-23 04:47] LABS: MAGNESIUM 2.1 mg/dL (1.7-2.3)
[2024-06-23 04:53] LABS: CALCIUM 8.4 mg/dL (8.5-10.3); CREATININE 0.7 mg/dL (0.6-1.3); POTASSIUM 4.4 mmol/L (3.5-4.5)
--- NOTE | 2024-06-23 09:34 | ANESTHESIA PROCEDURE NOTE ---
Pre-Anesthesia VS, & Labs Diagnosis Surgical Diagnosis:: Anemia Procedure Procedure: colonoscopy Vitals Vital Signs: Temp Pulse Resp BP Pulse Ox 36.4 C L 85 20 140/73 H 96 06/23/24 09:24 06/23/24 09:24 06/23/24 09:24 06/23/24 09:24 06/23/24 09:24 NPO NPO: >8 hours Is Patient ?: No Lab Results Current Lab Results: Laboratory Tests 06/23/24 04:12: WBC 5.6, RBC 2.61 L, Hgb 7.2 L, Hct 22.6 L, MCV 86.6, MCH 27.6, MCHC 31.9 L, RDW 15.3 H, Plt Count 218, MPV 10.2, Sodium 136, Potassium 4.4, Chloride 105, Carbon Dioxide 24, Anion Gap 7.0, BUN 24 H, Creatinine 0.7, E stimated GFR (MDRD) 80 L, Glucose 101, Calcium 8.4 L, Magnesium 2.1 06/22/24 15:06: Hgb 7.7 L, Hct 24.8 L 06/22/24 06:23: WBC 4.5 L, RBC 2.66 L, Hgb 7.3 L, Hct 22.9 L, MCV 86.1, MCH 27.4, MCHC 31.9 L, RDW 15.5 H, Plt Count 208, MPV 9.9, Sodium 135, Potassium 4.0, Chloride 105, Carbon Dioxide 26, Anion Gap 4.0 L, BUN 29 H, Creatinine 0.6, Estimated GFR (MDRD) 95, Glucose 98, Calcium 8.2 L, Magnesium 2.2 06/21/24 15:44: Hgb 7.2 L, Hct 23.4 L 06/21/24 06:57: Blood Type A POSITIVE, Antibody Screen NEGATIVE, Crossmatch IS Only See Detail 06/21/24 06:35: Blood Type Recheck A POSITIVE 06/21/24 06:33: WBC 5.8, RBC 2.35 L, Hgb 6.6 L*, Hct 21.2 L, MCV 90.2, MCH 28.1, MCHC 31.1 L, RDW 14.6, Plt Count 232, MPV 9.7, Neut # (Auto) 5.1, Lymph # (Auto) 0.4 L, Wallace # (Auto) 0.3, Eos # (Auto) 0.0, Baso # (Auto) 0.0, Absolute Nucleated RBC 0.00, Nucleated RBC % 0.0, Sodium 132 L, Potassium 4.7 H, Chloride 102, Carbon Dioxide 25, Anion Gap 5.0 L, BUN 51 H, Creatinine 0.7, Estimated GFR (MDRD) 80 L, Glucose 106 H, Calcium 8.6, Total Bilirubin 0.3, AST 19, ALT 11, Alkaline Phosphatase 50, Total Protein 5.5 L, Albumin 3.7, Globulin 1.8 L, Albumin/Globulin Ratio 2.1, Lipase 33 Lab results reviewed: Yes 06/23/24 04:12 06/23/24 04:12 Meds/Allgy Home Medications Ambulatory Orders Medication Instructions Recorded Confirmed milk thistle 175 mg tablet 175 mg PO QDAY 03/02/24 06/21/24 multivitamin 1 tab PO QAM 03/02/24 06/21/24 valacyclovir 500 mg tablet 500 mg PO QDAY PRN cold sores 03/02/24 06/21/24 calcium 300 mg (carb, 1 tab PO QDAY 03/09/24 06/21/24 citrate)-magnesium 150 mg-vit D3 400 unit tablet (Miguel-Mag Complex) coenzyme Q10 150 mg capsule 150 mg PO QDAY #30 caps 03/09/24 06/21/24 gabapentin 300 mg capsule 600 mg PO BID 03/09/24 06/21/24 melatonin 5 mg capsule 5 mg PO HS 03/09/24 06/21/24 turmeric 450 mg-turmeric root 1 cap PO QDAY 03/09/24 06/21/24 extract 50 mg capsule wheat dextrin 3 gram/4 gram oral See Rx Instructions PO QDAY #90 03/09/24 06/21/24 powder (Benefiber Sugar Free grams (dextrin)) methocarbamol 500 mg tablet 1,000 mg PO BID 06/21/24 06/21/24 Allergies Allergies Allergy/AdvReac Type Severity Reaction Status Date / Time No Known Drug Allergies Allergy Verified 03/02/24 21:04 PFSH Active Problems All Active Problems (Updated 06/21/24 @ 14:44 by Oliverio Lindsay MD) Acute GI bleeding (Acute) Weakness (Acute) Anemia (Acute) Essential hypertension (Acute 05/07/10) Spinal stenosis, lumbar (Acute) Lumbar post-laminectomy syndrome (Acute 12/23/22) Arthritis of both hips (Acute 12/04/18) Pelvic floor instability (Acute 08/07/18) Menopausal syndrome (Acute) Female cystocele (Acute) Aphthous ulcer of mouth (Acute 09/13/07) Venous insufficiency of lower extremity (Acute 12/09/20) Constipation by delayed colonic transit (Acute) Diverticulosis of colon (Acute 12/23/22) Asymptomatic cholelithiasis (Acute 12/23/22) Insomnia (Acute) Allergic rhinitis (Acute) Venous insufficiency (Acute) Other forms of scoliosis, thoracolumbar region (Acute) Pulmonary fibrosis (Acute) Medical History Medical History Sprain of other ligament of left ankle, subsequent encounter Retinal artery branch occlusion, left eye (02/07/18) Personal history of poliomyelitis Surgical History Surgical History Status post reverse arthroplasty of right shoulder Fall 2023 Status post reverse arthroplasty of left shoulder 09/2019 H/O colonoscopy 05/2016, sigmoid + descending diverticulosis w/ internal hemorrhoids S/P lumbar laminectomy 08/2015, bilateral L1-L5 S/p bilateral carpal tunnel release ~2000 History of episiotomy 2x with vaginal births, S/P tonsillectomy and adenoidectomy Age 20 Family History Family History Father Colon cancer Mother CAD (coronary artery disease) Heart attack Sister Lung cancer Sister Ovarian cancer Social History Social History Smoking Status: Never smoker Second hand tobacco smoke exposure: Yes Do you dip or chew tobacco?: No Do you vape?: No Living arrangement: At home Marital Status: Living Condition: With spouse/s.o. More Information: 4 children Relationship: Level: Independent Home Mobility Equipment: Cane and Walker Do you feel safe in your home environment?: Yes Suffered physical, verbal, emotional, or financial abuse?: No History of Abuse: No ETOH Use: None Substance Use: denies use Are you sexually active?: No Occupation: [employer] Retired: Yes Service: No POLST Patient has POLST: No POLST Status: Full Code Anesthesia Exam (Expanded) Exam General: Alert, Oriented x3 and Cooperative Dental: WNL Mouth Openin Fingerbreadth Neck Mobility: Normal Mallampati classification: II Thyromental Distance: 4-6 cm Respiratory: Lungs clear, Normal breath sounds and No respiratory distress Cardiovascular: Regular rate Neurological: Normal speech Mental/Cognitive Status: Alert/Oriented X3 and Normal for patient Plan Problem List (1) Acute GI bleeding: Plan: Colonoscopy with possible biopsies and/or polypectomies. (2) Weakness: (3) Anemia: Qualifiers: Anemia type: unspecified type Qualified Code(s): D64.9 - Anemia, unspecified (4) Essential hypertension: (5) Lumbar post-laminectomy syndrome: (6) Aphthous ulcer of mouth: Plan Anesthesia Type: Total IV Regional Block: Per Surgeon's request for Post Op pain control Consent for Procedure(s) Verified and Reviewed: Yes Code Status: Attempt Resuscitation ASA Classification ASA classification: 3-Severe systemic disease Is this case an emergency?: No
[2024-06-23] MEDS ORDERED: PROPOFOL 500 MG/50 ML 500 MG/50 ML VIAL ONE (11:42)
--- NOTE | 2024-06-23 13:17 | ANESTHESIA POST OP EVALUATION ---
Anesthesia Post Eval Post Anesthesia Eval Vitals: Last Vital Signs Temp 36.6 C 06/23/24 11:34 Pulse 86 06/23/24 11:34 Resp 20 06/23/24 11:34 BP 138/76 H 06/23/24 11:34 Pulse Ox 96 06/23/24 11:34 CV Function Including HR & BP: Stable Pain Control: Satisfactory Nausea & Vomiting: Negative Mental Status: Baseline Respiratory Status: Airway Patent Hydration Status: Satisfactory Anesthesia Complications: None
--- NOTE | 2024-06-23 13:57 | MISCELLANEOUS PROVIDER NOTE ---
Miscellaneous Provider Note - Note: I completed the colonoscopy and then spoke with both the patient and her explaining that there was no old or new blood seen. The patient does have diverticulosis as well as hemorrhoids but these do not appear to be the source of blood on today's examination. During my digital rectal examination her cervix felt quite prominent and I am going to recommend that she have a gynecologic exam performed before she leaves the hospital or soon thereafter. Her last gynecologic examination was performed 2 years ago. As an aside and as a reminder I performed her 's inguinal herniorrhaphy but I cannot remember when.
--- NOTE | 2024-06-23 18:05 | PROVIDER PROGRESS NOTE ---
Progress Note Progress Note Progress Note: June 23, 2024 6 PM She was brought in by ambulance for generalized weakness, generalized pain, nausea. Found to be severely anemic and had black tarry stools when she was asked. Hemoglobin was 6.3. She received 2 units of packed cells. Improved to 7.3. She remained stable later yesterday to 7.7. This morning she is 7.2. Her EGD was done the and negative. Her bowel was prep last night and she underwent a colonoscopy this morning. And nothing was found on colonoscopy. So there is no true source of GI bleed in spite of her black tarry stools. On examination blood pressure is 112/73, pulse 87, respirations 19, temperature 36.9. O2 sat 97%. She is an elderly female. 5 foot 2 inches tall, 57.7 kg. Alert. But appears very frail. No distress. Neck is supple Lungs are clear Regular rate and rhythm Abdomen is soft, hypoactive bowel sounds, nontender Extremities without edema I reviewed her labs for today and white cell count is 4.6. Hemoglobin 7.2. Hematocrit 22.6. Platelets 218. On electrolytes her BMP is normal except for a BUN of 24. Otherwise all of her last of her lab values are normal. Assessment/Plan Problem List (1) Acute GI bleeding: Impression: Patient presents with 2 to 3 weeks of worsening fatigue, as well as dark tarry stools. Hemoglobin down to 6.3 on admission, with baseline around 12. Received 2 units of packed red blood cells, with only slight improvement to 7.3. EGD completed 06/21 with no acute abnormalities. With only minimal response to transfusion, and continued black bowel movements overnight as well as symptomatic dizziness, so colonoscopy today and nothing found. I will advance her diet. Continue hemogram bid. If stays stable can go home tomorrow but will need pill endoscopy to find source of bleeding. (2) Weakness: Impression: Likely due to above. Patient is still able to ambulate independently. Because of that, she has not needed a PT or OT evaluation. She continues to in dependently ambulate today. (3) Anemia: Impression: See above. Patient received 2 units packed red blood cells, and hemoglobin only went from 6.6-7.3. She continues to have dark tarry stools. Continue to trend H&H, transfuse for hemoglobin less than 7. Qualifiers: Anemia type: unspecified type Qualified Code(s): D64.9 - Anemia, unspecified (4) Essential hypertension: Impression: Patient takes hydrochlorothiazide 12.5 mg daily, and follows closely with her PCP. Held at this time due to active GI bleed. Will resume when stable. (5) Lumbar post-laminectomy syndrome: Impression: Patient with a history of laminectomy, and continued pain after. Continue gabapentin, methocarbamol as per home dosing. (6) Aphthous ulcer of mouth: Impression: Does not currently have an ulcer. Does take Valtrex when needed.
[2024-06-23] MEDS: PANTOPRAZOLE 40 MG TABLET PO SCH (21:30)
[2024-06-24 04:49] LABS: BASOPHILS % (AUTO) 0.6 %; EOSINOPHILS # (AUTO) 0.3 10^3/uL (0.0-0.7); EOSINOPHILS % (AUTO) 5.7 %; HCT - HEMATOCRIT 28.2 % (37.0-47.0); LYMPHOCYTES # (AUTO) 0.9 10^3/uL (1.5-3.5); LYMPHOCYTES % (AUTO) 19.5 %; MEAN CORPUSCULAR HEMOGLOBIN 28.5 pg (27.0-31.0); MEAN CORPUSCULAR HGB CONC 31.9 g/dL (32.0-36.0); MEAN CORPUSCULAR VOLUME 89.2 fL (81.0-99.0); MEAN PLATELET VOLUME 10.4 fL (7.9-10.8); MONOCYTES # (AUTO) 0.5 10^3/uL (0.0-1.0); MONOCYTES % (AUTO) 10.9 %; NEUTROPHILS % (AUTO) 63.1 %; PLT - PLATELET COUNT 222 10^3/uL (130-450); RED BLOOD COUNT 3.16 10^6/uL (4.20-5.40); WHITE BLOOD COUNT 4.8 x10^3/uL (4.8-10.8)
[2024-06-24 05:10] LABS: CALCIUM 8.3 mg/dL (8.5-10.3); CREATININE 0.7 mg/dL (0.6-1.3); POTASSIUM 3.8 mmol/L (3.5-4.5)
--- NOTE | 2024-06-24 10:57 | Ultrasound Report ---
PROCEDURE: US Transvaginal INDICATIONS: Cervical swelling TECHNIQUE: Real-time endovaginal scanning was performed of the pelvic organs, with image documentation. COMPARISON: CT abdomen and pelvis 06/21/2024. FINDINGS: Uterus: Uterus is anteverted and normal in size at 3.8 x 3.8 x 1.7 cm. The myometrium is homogeneou s. There is a fluid within the endometrial canal measuring 1.5 x 1.1 x 0.6. No fibroids seen. No hype remia of the cervix. No conspicuous mass. Ovaries: Ovaries are not seen. Other: No pathologic free abdominal or pelvic fluid. IMPRESSION: 1. No conspicuous cervical mass. No hyperemia. 2. Trace fluid within the endometrial canal. 3. Ovaries are not seen. Reviewed by: Dave Umanzor MD on 06/24/2024 10:56 AM PDT Approved by: Dave Umanzor MD on 06/24/2024 10:56 AM PDT Station ID: [id number]
--- NOTE | 2024-06-24 12:20 | Discharge Summary ---
"Discharge Summary Admit Date: 06/21/24 Discharge Date: 06/24/24 Discharging Provider: Dr. Oliverio Lindsay Primary Care Provider: In between PCPs at the moment Code Status: Attempt Resuscitation Discharge Facility Name: Home DIAGNOSES Admission Diagnoses: Acute GI bleeding Weakness Anemia Essential hypertension Lumbar postlaminectomy syndrome Aphthous ulcer of the mouth Discharge Diagnoses with Status of Each Condition: Acute GI bleedingpatient received 3 units of packed red blood cells. EGD and colonoscopy did not show any stigmata of active bleeding. Patient's hemoglobin has now stabilized, and is improved to 10. I will be discharging on Protonix oral 40 mg twice daily to take for 4 weeks. I advised her to abstain from NSAID use. She also needs to follow-up with a automotive project engineer to talk about neck steps if her anemia worsens, including possible video capsule endoscopy study. Weaknessattributed to above. Anemiadue to acute blood loss, improving. Hypertensioncan continue hydrochlorothiazide on discharge. Lumbar postlaminectomy syndromeadvised to abstain from using Aleve. Advised to use Tylenol instead. Continue gabapentin, methocarbamol. Aphthous ulcercontinue Valtrex as needed. HPI History of Present Illness: Patient is a 84-year-old female with a history of chronic pain with NSAID use at home, hypertension who presents with worsening fatigue, and increasing tiredness over the last two weeks. She states that initially she thought she had the flu, but never really got better. She endorses some dark stools over the last few weeks. She does state that she does not take any iron supplements. She has no prior history of anemia. She is not on any blood thinners. She does take Aleve a few times a day for her lower back pain. She has had some nausea over the last few days, but no vomiting. She has not seen any bright red blood in her stool. She does not drink any alcohol. She has had a colonoscopy in the past, in 2014, and she was told she had diverticulosis, as well as 1 polyp which was removed. She has never had a EGD done before. She does endorse some feelings of dysphagia, and food being stuck. In the emergency room, patient was vitally stableher blood pressure was 120/70, heart rate was 94, respiratory rate was 16, oxygen saturation was 95% on room air, and she was afebrile. Lab work was reviewed, and it did show hemoglobin of 6.6; of note, checked in 01/17, it was 11.9. Her sodium was low at 132, potassium was mildly elevated at 4.7. Her creatinine was within normal limits, and her glucose was mildly elevated at 106. UA was positive for nitrites. She was not having any urinary symptoms. Rapid respiratory panel was negative. Abdomen/pelvis CT showed mild to moderate constipation, as well as a distended gallbladder with no gallbladder wall thickening. She was admitted for possible GI bleed. Surgery was consultedplan for EGD this afternoon. CONSULTS | PROCEDURES Consultations: General surgery Procedures: CT abdomen/pelvis, transvaginal ultrasound HOSPITAL COURSE Hospital Course: Patient is a 84-year-old female with a history of chronic pain and NSAID use at home who presented with worsening fatigue and tiredness. She was found to have a hemoglobin of 6.3 on admission. Abdomen pelvis/CT was done which showed mild to moderate constipation, no small bowel obstruction, no free air. General surgery was consulted to perform EGD, which was done and showed mild tortuous esophagus, but no active ulceration or bleeding. Colonoscopy was also completed with no acute abnormalities noted. She does have some mild diverticulosis and internal hemorrhoids noted. Her hemoglobin stabilized after 3 units packed red blood cells. On recheck it is 10. She has not had any more episodes of black tarry stools. Will be discharging her home on Protonix 40 mg twice daily. She needs to follow-up with a automotive project engineer if this occurs again, to complete a video capsule endoscopy. She also needs to make an appointment with a primary care provider. I spoke with the [facility], who states that they will call her back in the next few days to schedule this hospital follow-up appointment. She needs to have her hemoglobin rechecked at that time, and needs a referral to gastroenterology. ALLERGIES Allergies Allergy/AdvReac Type Severity Reaction Status Date / Time No Known Drug Allergies Allergy Verified 03/02/24 21:04 MEDICATIONS Ambulatory Orders Medication Instructions Recorded Confirmed milk thistle 175 mg tablet 175 mg PO QDAY 03/02/24 06/21/24 multivitamin 1 tab PO QAM 03/02/24 06/21/24 calcium 300 mg (carb, 1 tab PO QDAY 03/09/24 06/21/24 citrate)-magnesium 150 mg-vit D3 400 unit tablet (Miguel-Mag Complex) coenzyme Q10 150 mg capsule 150 mg PO QDAY #30 caps 03/09/24 06/21/24 gabapentin 300 mg capsule 600 mg PO BID 03/09/24 06/21/24 melatonin 5 mg capsule 5 mg PO HS 03/09/24 06/21/24 turmeric 450 mg-turmeric root 1 cap PO QDAY 03/09/24 06/21/24 extract 50 mg capsule wheat dextrin 3 gram/4 gram oral See Rx Instructions PO QDAY #90 03/09/24 06/21/24 powder (Benefiber Sugar Free grams (dextrin)) methocarbamol 500 mg tablet 1,000 mg PO BID 06/21/24 06/21/24 pantoprazole 40 mg tablet,delayed 40 mg PO BIDAC #60 tabs 06/24/24 release valacyclovir 500 mg tablet 500 mg PO QDAY PRN cold sores 30 06/24/24 days #30 tabs PHYSICAL EXAM AT DISCHARGE General Appearance: positive No acute distress and Alert; negative Anxious Eyes Bilateral: positive Normal inspection, PERRL and EOMI ENT: positive ENT inspection nml, Pharynx nml and No signs of dehydration Neck: positive Nml inspection, Thyroid nml and No JVD Respiratory: positive Chest non-tender and No respiratory distress; negative Wheezes, Rales or Rhonchi Cardiovascular: positive Regular rate & rhythm, No murmur and No gallop Peripheral Pulses: positive 2+ Abdomen: positive Non-tender and No distention; negative Hepatomegaly or Splenomegaly Back: positive Nml inspection; negative CVA tenderness (R) or CVA tenderness (L) Skin: positive Color nml, No rash, Warm and Dry Extremities: positive Non-tender, Full ROM, Nml appearance and No pedal edema Neurologic/Psychiatric: positive Oriented x3 and Mood/affect nml LABS 06/24/24 14:19 06/24/24 04:13 DIAGNOSTIC IMAGING Diagnostic Imaging Results: Final report reviewed QUALITY (Female Hip Fx Only) Was patient sent home on osteoporosis medication?: No FOLLOW UP Follow Up: Follow with primary care provider. Follow-up with automotive project engineer. TIME SPENT Time Spent in Discharge (Minutes): 35 Discharge Plan Discharge Patient Disposition: Home, Self Care Condition: Stable Prescriptions: New pantoprazole 40 mg Tablet,Delayed Release (Dr/Ec) 40 mg PO BIDAC Qty: 60 0RF Continued methocarbamol 500 mg tablet 1,000 mg PO BID valacyclovir 500 mg tablet 500 mg PO QDAY PRN (Reason: cold sores) 30 Days Qty: 30 0RF multivitamin Tablet 1 tab PO QAM milk thistle 175 mg tablet 175 mg PO QDAY Rx Instructions: give with meal/snack Miguel-Mag Complex 300 mg-150 mg- 400 unit tablet 1 tab PO QDAY gabapentin 300 mg capsule 600 mg PO BID melatonin 5 mg capsule 5 mg PO HS turmeric-turmeric root extract 450-50 mg capsule 1 cap PO QDAY coenzyme Q10 150 mg capsule 150 mg PO QDAY Qty: 30 0RF Benefiber Sugar Free (dextrin) 3 gram/4 gram powder See Rx Instructions PO QDAY Qty: 90 0RF Rx Instructions: 2 teaspoons orally every day; mix into at least 4 oz water or juice before administering Activity Restrictions: Activity as Tolerated Diet: Soft Health Concerns: You came in because you were very tired at home, and you were having dark stools. Your blood levels were very low. We gave you multiple blood transfusions. We had the surgeon come see you, and they performed a EGD, which is a scope from above, as well as a colonoscopy, which is a scope from below. Neither of these showed any evidence of obvious bleeding. Your colonoscopy did show some diverticulosis, mild, as well as some internal hemorrhoids. Your EGD, or scope from above showed no obvious abnormalities. We also did a vaginal ultrasound while you are here, and this showed no cervical mass and no other abnormalities. I am going to be sending you home on Protonix 40 mg twice a day, for you to take for the next 4 weeks. Please try to abstain from NSAID use, including your Aleve. Please follow-up with your primary care provider in the next 4 to 6 weeks to recheck your blood levels. Please follow-up with a automotive project engineer in the outpatient setting. You may have to go to your primary care provider to get a referral for them. I understand that you are in the midst of transferring to a different primary care provider. I have asked our social media editor to help see if we can get you in to see someone sooner. I called them myself and they assured me they'd call you in the next few days to make sure you have an appointment in the next 1-2 weeks for hospital follow up. They will need to recheck your hemoglobin levels at this time and refer you to a gastroenteroligist. You may still be feeling fatigued and tired, but I expect this to slowly improve. We are glad you are feeling better, thank you for letting us take care of you. Print Language: Hungarian Patient Instructions: Surgery Anesthesia After, Bleeding Gastrointestinal Ch Stand Alone Forms: PCP List Follow-up Care: Emily Okeefe MD [Physician No Access] -"
[2024-06-24 14:25] LABS: HCT - HEMATOCRIT 31.1 % (37.0-47.0)
[2024-06-24 15:46] VITALS: BP 148/80; TEMP 98.1; O2SAT 97
[2024-06-24] MEDS: PANTOPRAZOLE 40 MG TABLET PO SCH (17:13)
== END 2024-06-24 18:36 | disposition home or self-care (01) | DRG 378 ==
LOC: EDBD → ED 06:12 → MS3 06:12
PROVIDERS: ADMIT Internal Medicine; ATTEND Internal Medicine
DX: K57.30 Diverticulosis of large intestine without perforation or abscess without bleeding; I10 Essential (primary) hypertension; D50.0 Iron deficiency anemia secondary to blood loss (chronic); K59.00 Constipation, unspecified; M54.50 Low back pain, unspecified; K12.0 Recurrent oral aphthae; R10.9 Unspecified abdominal pain; R11.0 Nausea; M96.1 Postlaminectomy syndrome, not elsewhere classified; K64.8 Other hemorrhoids; Q39.9 Congenital malformation of esophagus, unspecified; Z79.899 Other long term (current) drug therapy; K92.1 Melena; D62 Acute posthemorrhagic anemia; G89.29 Other chronic pain; Z80.0 Family history of malignant neoplasm of digestive organs